=== PATIENT | male | born 1950 | race Caucasian/White ===

== ENCOUNTER → 2016-08-17 | Outpatient (CLI) | payer BC | END | disposition home or self-care (01) | LOC: LABWHC1 16:44 | PROVIDERS: ATTEND Internal Medicine Cardiovascular Disease | DX: I49.9 Cardiac arrhythmia, unspecified (principal); Z51.81 Encounter for therapeutic drug level monitoring | CPT/HCPCS: 36415; 84439; 84443 ==

== ENCOUNTER 2016-11-26 10:47 | Day surgery (SDC) | payer BC ==
[2016-11-19 13:05] VITALS: BMI 23.7
[~2016-11-26 10:47] MED LIST: DEXAMETHASONE SOD PHOSPHATE 10 MG/ML 1 ML VIAL IV ONE; HEPARIN SODIUM,PORCINE 5,000 UNIT/ML 1 ML VIAL SQ ONE; HYDROmorphone 1 MG/ML 1 ML SYRINGE IVP PRN; LIDOCAINE 1% 20 ML VIAL (10MG/ML) FOR IV START INTRADERMA PRN; ONDANSETRON 4 MG/2 ML VIAL IVP ONE; ceFAZolin 2 GM in SODIUM CHLORIDE 0.9% 100 ML IVPB ONE
[2016-11-26] MEDS: LACTATED RINGERS 1,000 ML IV SCH ×2 (11:14→11:31)
[2016-11-26 11:41] LABS: INR 1.3 (<1.2); Prothrombin Time 12.8 sec (9.0-12.0)
[2016-11-26] MEDS ORDERED: MIDAZOLAM 2 MG/2 ML VIAL ONE (12:31)
[2016-11-26] MEDS ORDERED: LIDOCAINE 1% INJ 10MG/ML (20 ML MDV) ONE (12:31)
[2016-11-26] MEDS ORDERED: SUCCINYLCHOLINE CHLORIDE 100 MG/5 ML SYR IV ONE (12:31)
[2016-11-26] MEDS ORDERED: ROCURONIUM BROMIDE 10 MG/ML 10 ML VIAL IV ONE (12:31)
[2016-11-26] MEDS ORDERED: fentaNYL (PF) 50 MCG/ML 2 ML AMP ONE (12:31)
[2016-11-26] MEDS ORDERED: GLYCOPYRROLATE 0.2 MG/ML 2 ML VIAL ONE (12:31)
[2016-11-26] MEDS ORDERED: ePHEDrine 50 MG/ML 1 ML AMP ONE (12:31)
[2016-11-26] MEDS ORDERED: PROPOFOL 10 MG/ML 20 ML VIAL IV ONE (12:31)
[2016-11-26] MEDS ORDERED: NEOSTIGMINE 1 MG/ML 10 ML VIAL ONE (12:31)
[2016-11-26] MEDS ORDERED: BUPIVACAIN-EPI 0.25%-1:200,000 30 ML VIAL SQ ONE (12:58)
[2016-11-26] MEDS ORDERED: LACTATED RINGERS 1,000 ML IV ONE (14:14)
[2016-11-26 14:35] VITALS: TEMP 97
[2016-11-26 15:13] VITALS: RESP 16
[2016-11-26 15:39] VITALS: BP 112/55; PULSE 64
--- NOTE | 2016-11-26 17:09 | P.OP ---
Date of Procedure: 11/26/16 Preoperative Diagnosis: Right inguinal hernia Postoperative Diagnosis: Same Procedure(s) Performed: Robotic-assisted laparoscopic right indirect inguinal hernia repair with mesh Implants: Covidien Progrip mesh Anesthesia: JOSHUA local Surgeon: Rita Bhatia Pathology: none sent Condition: stable Disposition: PACU Indications for Procedure: 66 years old male presents with right inguinal hernia. He had open left inguinal hernia repair in 2016. Informed consent obtained and patient elected to undergo robotic-assisted laparoscopic right inguinal hernia repair with mesh. Operative Findings: Right indirect inguinal hernia Description of Procedure: The patient was brought to the operating room and placed in supine position. General anesthesia with endotracheal intubation was performed as per anesthesia team. Both arms were tucked against the abdominal wall and a shunt was positioned in lithotomy using yellowfin stirrups. A dennison catheter was inserted under sterile aseptic precautions. Chlorhexidine was used to prep the skin followed by application of sterile drapes and Ioban dressing. A timeout was performed to verify correct patient, correct procedure and correct side. Patient was confirmed to receive perioperative IV antibiotics, subcutaneous heparin 5000 units and bilateral SCDs were placed. A 2 mm skin incision was made in the left subcostal area and Veress needle was inserted to establish pneumoperitoneum to a pressure of 15 mmHg. A 1.5 cm supraumbilical incision was made which was deepened through the subcutaneous tissue . Two additional 8 mm skin incisions were made on either side of the midline approximately 8 cm away. A 5 mm 30 laparoscope was used to enter the peritoneum using direct Optiview technique. A 12 mm robotic trocar was inserted in the subumbilical area and 8 mm robotic trocars were inserted on either side of the midline. The patient was placed in Trendelenburg position and the robot was brought in between the legs. The robotic arms including the camera arm were docked on the trocars. The robotic prograsp and monopolar scissors were introduced via arm 1 and 2 respectively. Upon inspection of the peritoneal cavity, right indirect inguinal hernia identified. The hoffman anatomical landmarks including the pubic symphysis, median and medial umbilical ligaments and bilateral epigastric vessels were identified. The left side showed intact hernia repair. No recurrence. Using monopolar scissors a peritoneal flap was created extending medially from the median umbilical ligament and laterally to the direct hernia space. Using gentle traction and countertraction the flap was developed posteriorly. Loose fibrofatty tissue was bluntly dissected. Medially the dissection was carried along the Homar's ligament till pubic tubercle was identified. Care was taken to stay away from the urinary bladder. Dissection was carried out to leave the epigastric vessels against the anterior abdominal wall and laterally beyond the hernia defect. The indirect hernia sac was completely reduced. The iliofemoral vessels were identified. The peritoneal reflection overlying the spermatic cord was also dissected off. Care was taken not to injure any gonadal vessels or spermatic cord. Enough inferior dissection was carried out 2 cm below the hernia defect. No direct hernia noted. Covidien progrip mesh was rolled and introduced through the 8mm camera port. The right mesh was placed in the preperitoneal cavity with green portion overlying the pubic tubercle . The mesh was rolled upwards so that the mesh covered the direct , indirect inguinal hernia and the femoral hernia space without any kinks or folds. The peritoneal flap was then sutured to the cut edge of the peritoneum using continuous 2-0 V lock sutures. The hernia sac was completely reduced and the mesh lay flat without any kinks or folds. The robotic arms were then undocked and 30 degree laparoscope was inserted. All the needles were removed from the abdominal cavity. The 12mm camera trocar site was closed with 2 transfascial sutures of 0 Vicryl. The sponge, instrument and needle count were correct x2. The skin was closed with interrupted sutures of 4-0 Monocryl. Dermabond skin glue was applied followed by Telfa and Tegaderm dressing. Dennison catheter was removed and scrotum was palpated to confirm the position of the testicles. The patient tolerated the procedure well and was taken to post anesthesia care unit in stable condition
== END 2016-11-26 16:10 | disposition home or self-care (01) ==
LOC: OR 10:47
PROVIDERS: ATTEND Surgery
DX: K40.90 Unilateral inguinal hernia, without obstruction or gangrene, not specified as recurrent (principal); I25.2 Old myocardial infarction; I25.10 Atherosclerotic heart disease of native coronary artery without angina pectoris; I10 Essential (primary) hypertension; I48.91 Unspecified atrial fibrillation; Z79.01 Long term (current) use of anticoagulants; E78.5 Hyperlipidemia, unspecified; Z79.82 Long term (current) use of aspirin; Z79.899 Other long term (current) drug therapy; Z79.51 Long term (current) use of inhaled steroids
CPT/HCPCS: 49650; S2900; 85610

== ENCOUNTER 2017-01-01 08:00 | Inpatient (IN) | payer BC, MEDICARE ==
--- NOTE | 2017-01-01 08:51 | ED ---
GI Bleed HPI - General Chief complaint: GI Bleed Stated complaint: Diarrhea Time Seen by Provider: 01/01/17 08:30 Source: patient, RN notes reviewed Mode of arrival: ambulatory Limitations: no limitations - History of Present Illness Initial comments: This is a 66-year-old male with a history of diverticulosis a history of a recent right inguinal hernia repair and a history of hemorrhoids who states he had the onset this morning of abdominal gurgling and diarrhea. He had frequent episodes diarrhea when he got up in the morning he discovered dark blood in the toilet. He complains some lightheadedness dizziness and some shortness of breath with this. No chest pain. He has no history of GI bleeding in the past a history of any abdominal surgery. He did state he had a colonoscopy was did reveal diverticulosis. He has lower suprapubic discomfort at this time. It is mild. Per family he does appear to be somewhat more pale than usualn complaint: gross hematochezia - Related Data Home Medications Medication Instructions Recorded Confirmed Aspirin 81 mg PO DAILY 06/11/15 01/01/17 Montelukast [Singulair] 10 mg PO HS 08/25/15 01/01/17 Warfarin Sodium [Coumadin] 10 mg PO TUTHSA 08/25/15 01/01/17 Multivitamin [Men's Multi-Vitamin] 1 tab PO DAILY 09/27/15 01/01/17 Crenshaw-3 Fatty Acids/Fish Oil [Fish 2 cap PO DAILY 09/27/15 01/01/17 Oil 1,000 mg Softgel] Warfarin Sodium [Coumadin] 8 mg PO SUMOWEFR 10/04/15 01/01/17 Atenolol [Tenormin] 12.5 mg PO HS 11/19/16 01/01/17 Atorvastatin [Lipitor] 20 mg PO HS 11/19/16 01/01/17 Tamsulosin [Flomax] 0.8 mg PO DAILY 11/19/16 01/01/17 Penicillin V Potassium [Pen Vee K] 500 mg PO QID 01/01/17 01/01/17 Previous Rx's Medication Instructions Recorded Amiodarone [Cordarone] 100 mg PO DAILY #30 tab 10/04/15 Docusate [Colace] 100 mg PO BID #30 capsule 11/26/16 Allergies Allergy/AdvReac Type Severity Reaction Status Date / Time No Known Allergies Allergy Verified 01/01/17 08:23 Review of Systems ROS Statement: Those systems with pertinent positive or pertinent negative responses have been documented in the HPI. ROS Other: All systems not noted in ROS Statement are negative. Past Medical History Past Medical History: Atrial Fibrillation, Atrial Flutter, Eye Disorder, Hyperlipidemia, Myocardial Infarction ([place]), Mitral Valve Prolapse (MVP), Prostate Disorder Additional Past Medical History / Comment(s): FOR CARDIAC HISTORY SEE DR CAMARILLO'S H&P. 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 Last Myocardial Infarction Date:: History of Any Multi-Drug Resistant Organisms: None Reported Past Surgical History: Cardiac Ablation, Heart Catheterization, Hernia Repair Additional Past Surgical History / Comment(s): mitral valve REPAIR, left CATARACT SX-THEN REMOVAL OF LT EYE LENS Past Anesthesia/Blood Transfusion Reactions: No Reported Reaction Past Psychological History: No Psychological Hx Reported Smoking Status: Never smoker Past Alcohol Use History: None Reported Past Drug Use History: None Reported - Past Family History Father Family Medical History: CVA/TIA, Myocardial Infarction ([place]) Additional Family Medical History / Comment(s): from heart attack Mother History Unknown: Yes Family Medical History: No Reported History Brother(s) History Unknown: Yes Family Medical History: No Reported History Sister(s) History Unknown: Yes Family Medical History: No Reported History Daughter(s) Family Medical History: No Reported History Son(s) Family Medical History: No Reported History General Exam - General Exam Comments Initial Comments: This is a well-developed well-nourished awake alert oriented 3 male Limitations: no limitations General appearance: alert, in no apparent distress Head exam: Present: atraumatic, normocephalic, normal inspection Eye exam: Present: normal appearance, PERRL, EOMI. Absent: scleral icterus, conjunctival injection, periorbital swelling ENT exam: Present: normal exam, mucous membranes moist Neck exam: Present: normal inspection. Absent: tenderness, meningismus, lymphadenopathy Respiratory exam: Present: normal lung sounds bilaterally. Absent: respiratory distress, wheezes, rales, rhonchi, stridor Cardiovascular Exam: Present: regular rate, normal rhythm, normal heart sounds. Absent: systolic murmur, diastolic murmur, rubs, gallop, clicks GI/Abdominal exam: Present: soft, tenderness, normal bowel sounds. Absent: distended, guarding, rebound, rigid Rectal exam: Present: heme (+) stool (Burning color stool that are prominent hemorrhoids are nontender and without evidence of bleeding at this time. No rectal masses.) exam: Present: normal inspection Extremities exam: Present: normal inspection, full ROM, normal capillary refill. Absent: tenderness, pedal edema, joint swelling, calf tenderness Back exam: Present: normal inspection Neurological exam: Present: alert, oriented X3, CN II-XII intact Psychiatric exam: Present: normal affect, normal mood Skin exam: Present: warm, dry, intact, pallor. Absent: rash Course Vital Signs 01/01/17 01/01/17 01/01/17 08:08 09:10 10:00 Temperature 97.5 F L Pulse Rate 79 65 63 Respiratory 16 20 18 Rate Blood Pressure 91/52 87/54 99/54 O2 Sat by Pulse 98 99 98 Oximetry 01/01/17 01/01/17 11:00 12:00 Temperature Pulse Rate 62 64 Respiratory 18 18 Rate Blood Pressure 86/52 86/58 O2 Sat by Pulse 98 99 Oximetry - Reevaluation(s) Reevaluation #1: 01/01/17 12:51 [address] Hoff and Dr. Bennett Yusuf both came to the emergency department to see the patient. The patient will be admitted to the intensive care unit. I did discuss case with the patient and his family. Medical Decision Making - Lab Data Result diagrams: 01/01/17 08:40 01/01/17 08:40 Lab Results 01/01/17 01/01/17 01/01/17 Range/Units 08:40 08:40 08:40 WBC 8.0 (3.8-10.6) k/uL RBC 3.66 L (4.30-5.90) m/uL Hgb 11.9 L (13.0-17.5) gm/dL Hct 36.4 L (39.0-53.0) % MCV 99.3 (80.0-100.0) fL MCH 32.6 (25.0-35.0) pg MCHC 32.8 (31.0-37.0) g/dL RDW 14.6 (11.5-15.5) % Plt Count 188 (150-450) k/uL Neutrophils % 85 % Lymphocytes % 9 % Monocytes % 4 % Eosinophils % 1 % Basophils % 0 % Neutrophils # 6.8 (1.3-7.7) k/uL Lymphocytes # 0.7 L (1.0-4.8) k/uL Monocytes # 0.3 (0-1.0) k/uL Eosinophils # 0.1 (0-0.7) k/uL Basophils # 0.0 (0-0.2) k/uL PT (9.0-12.0) sec INR (<1.2) APTT (22.0-30.0) sec Sodium 139 (137-145) mmol/L Potassium 5.0 (3.5-5.1) mmol/L Chloride 110 H (98-107) mmol/L Carbon Dioxide 24 (22-30) mmol/L Anion Gap 5 mmol/L BUN 25 H (9-20) mg/dL Creatinine 1.19 (0.66-1.25) mg/dL Est GFR (MDRD) Af Amer >60 (>60 ml/min/1.73 sqM) Est GFR (MDRD) Non-Af >60 (>60 ml/min/1.73 sqM) Glucose 111 H (74-99) mg/dL Calcium 8.2 L (8.4-10.2) mg/dL Total Bilirubin 1.6 H (0.2-1.3) mg/dL AST 35 (17-59) U/L ALT 40 (21-72) U/L Alkaline Phosphatase 71 (38-126) U/L Total Creatine Kinase 336 H (55-170) U/L CK-MB (CK-2) 4.6 H* (0.0-2.4) ng/mL CK-MB (CK-2) Rel Index 1.4 Troponin I <0.012 (0.000-0.034) ng/mL Total Protein 5.7 L (6.3-8.2) g/dL Albumin 3.2 L (3.5-5.0) g/dL Stool Occult Blood (Negative) Blood Type Blood Type Confirm Blood Type Recheck Antibody Screen Spec Expiration Date 01/01/17 01/01/17 01/01/17 Range/Units 08:40 08:40 08:40 WBC (3.8-10.6) k/uL RBC (4.30-5.90) m/uL Hgb (13.0-17.5) gm/dL Hct (39.0-53.0) % MCV (80.0-100.0) fL MCH (25.0-35.0) pg MCHC (31.0-37.0) g/dL RDW (11.5-15.5) % Plt Count (150-450) k/uL Neutrophils % % Lymphocytes % % Monocytes % % Eosinophils % % Basophils % % Neutrophils # (1.3-7.7) k/uL Lymphocytes # (1.0-4.8) k/uL Monocytes # (0-1.0) k/uL Eosinophils # (0-0.7) k/uL Basophils # (0-0.2) k/uL PT 41.5 H (9.0-12.0) sec INR 4.2 H (<1.2) APTT 32.8 H (22.0-30.0) sec Sodium (137-145) mmol/L Potassium (3.5-5.1) mmol/L Chloride (98-107) mmol/L Carbon Dioxide (22-30) mmol/L Anion Gap mmol/L BUN (9-20) mg/dL Creatinine (0.66-1.25) mg/dL Est GFR (MDRD) Af Amer (>60 ml/min/1.73 sqM) Est GFR (MDRD) Non-Af (>60 ml/min/1.73 sqM) Glucose (74-99) mg/dL Calcium (8.4-10.2) mg/dL Total Bilirubin (0.2-1.3) mg/dL AST (17-59) U/L ALT (21-72) U/L Alkaline Phosphatase (38-126) U/L Total Creatine Kinase (55-170) U/L CK-MB (CK-2) (0.0-2.4) ng/mL CK-MB (CK-2) Rel Index Troponin I (0.000-0.034) ng/mL Total Protein (6.3-8.2) g/dL Albumin (3.5-5.0) g/dL Stool Occult Blood Positive (Negative) Blood Type B Positive Blood Type Confirm Blood Type Recheck CABO Indicated Antibody Screen NEGATIVE Spec Expiration Date 01/04/2017 - 233901/01/17 Range/Units 10:31 WBC (3.8-10.6) k/uL RBC (4.30-5.90) m/uL Hgb (13.0-17.5) gm/dL Hct (39.0-53.0) % MCV (80.0-100.0) fL MCH (25.0-35.0) pg MCHC (31.0-37.0) g/dL RDW (11.5-15.5) % Plt Count (150-450) k/uL Neutrophils % % Lymphocytes % % Monocytes % % Eosinophils % % Basophils % % Neutrophils # (1.3-7.7) k/uL Lymphocytes # (1.0-4.8) k/uL Monocytes # (0-1.0) k/uL Eosinophils # (0-0.7) k/uL Basophils # (0-0.2) k/uL PT (9.0-12.0) sec INR (<1.2) APTT (22.0-30.0) sec Sodium (137-145) mmol/L Potassium (3.5-5.1) mmol/L Chloride (98-107) mmol/L Carbon Dioxide (22-30) mmol/L Anion Gap mmol/L BUN (9-20) mg/dL Creatinine (0.66-1.25) mg/dL Est GFR (MDRD) Af Amer (>60 ml/min/1.73 sqM) Est GFR (MDRD) Non-Af (>60 ml/min/1.73 sqM) Glucose (74-99) mg/dL Calcium (8.4-10.2) mg/dL Total Bilirubin (0.2-1.3) mg/dL AST (17-59) U/L ALT (21-72) U/L Alkaline Phosphatase (38-126) U/L Total Creatine Kinase (55-170) U/L CK-MB (CK-2) (0.0-2.4) ng/mL CK-MB (CK-2) Rel Index Troponin I (0.000-0.034) ng/mL Total Protein (6.3-8.2) g/dL Albumin (3.5-5.0) g/dL Stool Occult Blood (Negative) Blood Type Blood Type Confirm B Positive Blood Type Recheck Antibody Screen Spec Expiration Date Critical Care Time Critical Care Time: Yes Critical Care Time: 37 minutes of critical care time which includes initial history physical labs x- rays reevaluation patient response to therapy. Discussion with the admitting physician discussed with the hand zipper trimmer and the surgeon. Disposition Clinical Impression: Hematochezia, GI bleed, Hypotension, Anemia Disposition: ADMITTED IP TO THIS [facility] Condition: Serious
[2017-01-01 09:04] LABS: Basophils % (A) 0 %; CH 33.7; CHCM 34.1; Eosinophils # (A) 0.1 k/uL (0-0.7); Eosinophils % (A) 1 %; HCT 36.4 % (39.0-53.0); HDW 2.54; HGB 11.9 gm/dL (13.0-17.5); Luc # (Auto) 0.08; Luc % (Auto) 1; Lymphocytes # (A) 0.7 k/uL (1.0-4.8); Lymphocytes % (A) 9 %; MCH 32.6 pg (25.0-35.0); MCHC 32.8 g/dL (31.0-37.0); MCV 99.3 fL (80.0-100.0); Mean Platelet Volume 7.6; Monocytes # (A) 0.3 k/uL (0-1.0); Monocytes % (A) 4 %; Neutrophils # (A) 6.8 k/uL (1.3-7.7); Neutrophils % (A) 85 %; RBC 3.66 m/uL (4.30-5.90); RDW 14.6 % (11.5-15.5); WBC (Perox) 8.17
[2017-01-01 09:15] LABS: ALT 40 U/L (21-72); AST 35 U/L (17-59); Alkaline Phosphatase 71 U/L (38-126); Anion Gap 5 mmol/L; Blood Urea Nitrogen 25 mg/dL (9-20); Calcium 8.2 mg/dL (8.4-10.2); Carbon Dioxide 24 mmol/L (22-30); Chloride 110 mmol/L (98-107); Glucose 111 mg/dL (74-99); Non-African American GFR(MDRD) >60 (>60 ml/min/1.73 sqM); Sodium 139 mmol/L (137-145); Total Bilirubin 1.6 mg/dL (0.2-1.3); Total Protein 5.7 g/dL (6.3-8.2)
[2017-01-01 09:22] LABS: INR 4.2 (<1.2); Partial Thromboplastin Time 32.8 sec (22.0-30.0); Prothrombin Time 41.5 sec (9.0-12.0)
[2017-01-01 09:43] LABS: Creatine Kinase 336 U/L (55-170)
[2017-01-01 09:57] LABS: Troponin I <0.012 ng/mL (0.000-0.034)
[2017-01-01 10:08] LABS: Creatine Kinase MB 4.6 ng/mL (0.0-2.4)
[2017-01-01] MEDS ORDERED: RX INFO: IV CONTRAST WAS GIVEN 1 EACH MISC MISCELLANE PRN (11:04)
[2017-01-01] MEDS ORDERED: SODIUM CHLORIDE 0.9% 1,000 ML IV STA (11:32)
--- NOTE | 2017-01-01 12:03 | CT ---
EXAMINATION TYPE: CT abdomen pelvis w con DATE OF EXAM: 01/01/2017 COMPARISON: NONE HISTORY: Diarrhea CT DLP: 1271 mGycm Automated exposure control for dose reduction was used. TECHNIQUE: Helical acquisition of images was performed from the lung bases through the pelvis. CONTRAST: Performed without Oral Contrast and with IV Contrast, patient injected with 100 ml mL of Omnipaque 30 0. FINDINGS: LUNG BASES: Minimal subsegmental bibasilar atelectasis is noted. LIVER/GB: Geographic hypoattenuation is seen near the fissure for the ligamentum teres and most commo nly relates to hepatic steatosis although punctate arterial enhancing region is seen just superior to this on series 3 image 11. The represent a true 6 mm hepatic lesion versus arterial portal shunt. Punctate calculus is seen within the gallbladder fundus dependently. Additionally rounded 5 mm calcul us is seen within the gallbladder neck just proximal to the cystic duct. No current, bile duct dilati on is seen. No right upper quadrant fat stranding is present or pericholecystic fluid. PANCREAS: No significant abnormality is seen. SPLEEN: No significant abnormality is seen. ADRENALS: No significant abnormality is seen. KIDNEYS: Right kidney has a lobulated contour, likely from prior injury. Left kidney is not present a nd may be congenitally or surgically absent as no surgical clips are seen within the retroperitoneal space. Pancreatic tail and adrenal gland extend into the renal fossa. FREE AIR: No free air is visualized. RETROPERITONEAL ADENOPATHY: None visualized REPRODUCTIVE ORGANS: There is heterogeneity of the prostate gland with dystrophic calcification. URINARY BLADDER: No significant abnormality is seen. PELVIC ADENOPATHY: None visualized. OSSEOUS STRUCTURES: Mild degenerative changes of the thoracolumbar and lumbosacral spine are noted. BOWEL: Fluid fluid level is seen within the rectum. Rectum is mildly enlarged measuring 6.9 cm. Find ings are compatible with the patient's history of diarrhea. Numerous sigmoid diverticula are present without pericolonic fat stranding. Probable small epiploic appendage or omental infarct is seen on se lois 3 image 68 (midline measuring 1.0 cm. Fluid collection is seen within the right inguinal canal a nd left inguinal canals fat filled. Small bowel is nondilated. Descending duodenal diverticulum is no connie. IMPRESSION: 1. NO EVIDENCE OF BOWEL OBSTRUCTION. MILDLY ENLARGED RECTUM CONTAINING AIR-FLUID LEVEL COMPATIBLE WIT H THE PATIENT'S HISTORY OF DIARRHEA. SIGMOID DIVERTICULA ARE SEEN WITHOUT DIVERTICULITIS. 2. CHOLELITHIASIS AND 5 MM CALCULUS APPROXIMATING THE ORIGIN OF THE CYSTIC DUCT WITHOUT CURRENT EVIDE NCE OF COMMON BILE DUCT DILATION, PERICHOLECYSTIC FLUID OR RIGHT UPPER QUADRANT FAT STRANDING. 3. 6 MM ARTERIALLY ENHANCING HEPATIC LESION WHICH MAY RELATE TO ARTERIAL PORTAL SHUNT OR TRUE HEPATIC LESION. FURTHER CHARACTERIZATION A NONEMERGENT BASIS WITH DYNAMIC ENHANCED CT ABDOMEN OR MR IS RECOM MENDED. 4. EPIPLOIC APPENDAGE OR OMENTAL INFARCT, LEFT PARA MIDLINE WITHIN THE PELVIS. 5. FLUID COLLECTION WITHIN THE RIGHT INGUINAL CANAL WITH NO ASSOCIATED INFLAMMATORY CHANGE.
[2017-01-01] MEDS ORDERED: NALOXONE 0.4 MG/ML 1 ML VIAL IV PRN (12:39)
--- NOTE | 2017-01-01 13:02 | P.CNPUL ---
History of Present Illness Consult date: 01/01/17 Requesting physician: Keenan Sommer Reason for consult: other (Critical care management) Chief complaint: Bright red bowel movements History of present illness: This is a very pleasant 66-year-old gentleman who follows with Dr. Chan as his primary care physician. He has a history of coronary artery disease with previous myocardial infarction, atrial fibrillation/flutter status post cardioversion and ablation he spent anticoagulated with warfarin since June 2015, hyperlipidemia, mitral valve repair. He did have a recent laparoscopic abdominal hernia repair He is a lifelong nonsmoker. He presented to the emergency room early this morning after having multiple episodes of bright red rectal bleeding which started approximately 1:00 this morning. He does have a prior history of diverticular disease on previous colonoscopy. He has not had any issues with supra therapeutic INR is in the past. He does take Aleve 1 tablet daily and 81 mg aspirin. His hemoglobin is 11.9. INR 4.2. Stool for occult blood is positive. He has been seen and evaluated by surgical services. The patient also was found to be hypotensive with systolic blood pressure in the 80s. He is currently seen in 1 L of normal saline fluid resuscitation. A computed tomography scan of the abdomen and pelvis did reveal sigmoid diverticula without acute diverticulitis. 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 He'll be transferred to the intensive care unit will be following him for the same. Review of Systems 14 point review of system was conducted. All negative other than as mentioned in the HPI. Past Medical History Past Medical History: Atrial Fibrillation, Atrial Flutter, Eye Disorder, Hyperlipidemia, Myocardial Infarction ([place]), Mitral Valve Prolapse (MVP), Prostate Disorder Additional Past Medical History / Comment(s): FOR CARDIAC HISTORY SEE DR CAMARILLO'S H&P. 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 Last Myocardial Infarction Date:: History of Any Multi-Drug Resistant Organisms: None Reported Past Surgical History: Cardiac Ablation, Heart Catheterization, Hernia Repair Additional Past Surgical History / Comment(s): mitral valve REPAIR, left CATARACT SX-THEN REMOVAL OF LT EYE LENS Past Anesthesia/Blood Transfusion Reactions: No Reported Reaction Past Psychological History: No Psychological Hx Reported Smoking Status: Never smoker Past Alcohol Use History: None Reported Past Drug Use History: None Reported - Past Family History Father Family Medical History: CVA/TIA, Myocardial Infarction ([place]) Additional Family Medical History / Comment(s): from heart attack Mother History Unknown: Yes Family Medical History: No Reported History Brother(s) History Unknown: Yes Family Medical History: No Reported History Sister(s) History Unknown: Yes Family Medical History: No Reported History Daughter(s) Family Medical History: No Reported History Son(s) Family Medical History: No Reported History Medications and Allergies Home Medications Medication Instructions Recorded Confirmed Type Aspirin 81 mg PO DAILY 06/11/15 01/01/17 History Montelukast [Singulair] 10 mg PO HS 08/25/15 01/01/17 History Warfarin Sodium [Coumadin] 10 mg PO TUTHSA 08/25/15 01/01/17 History Multivitamin [Men's Multi-Vitamin] 1 tab PO DAILY 09/27/15 01/01/17 History [place]ri[place]ine-3 Fatty Acids/Fish Oil [Fish 2 cap PO DAILY 09/27/15 01/01/17 History Oil 1,000 mg Softgel] Warfarin Sodium [Coumadin] 8 mg PO SUMOWEFR 10/04/15 01/01/17 History Atenolol [Tenormin] 12.5 mg PO HS 11/19/16 01/01/17 History Atorvastatin [Lipitor] 20 mg PO HS 11/19/16 01/01/17 History Tamsulosin [Flomax] 0.8 mg PO DAILY 11/19/16 01/01/17 History Penicillin V Potassium [Pen Vee K] 500 mg PO QID 01/01/17 01/01/17 History Allergies Allergy/AdvReac Type Severity Reaction Status Date / Time No Known Allergies Allergy Verified 01/01/17 08:23 Physical Exam Vitals: Vital Signs Temp Pulse Resp BP Pulse Ox 01/01/17 12:00 64 18 86/58 99 01/01/17 11:00 62 18 86/52 98 01/01/17 10:00 63 18 99/54 98 01/01/17 09:10 65 20 87/54 99 01/01/17 08:08 97.5 F L 79 16 91/52 98 Intake and Output 12/31/16 01/01/17 01/01/17 22:59 06:59 14:59 Other: Weight 78.018 kg Patient Weight 01/02/17 06:59 Weight 78.018 kg GENERAL EXAM: Alert, active, comfortable in no apparent distress. HEAD: Normocephalic. EYES: Normal reaction of pupils, equal size. NOSE: Clear with pink turbinates. THROAT: No erythema or exudates. NECK: No masses, no JVD. CHEST: No chest wall deformity. LUNGS: Equal air entry with no crackles, wheeze, rhonchi or dullness. CVS: S1 and S2 normal with no audible mumurs, regular rhythm. ABDOMEN: No hepatosplenomegaly, normal bowel sounds, no guarding or rigidity. SPINE: No scoliosis or deformity SKIN: No rashes CENTRAL NERVOUS SYSTEM: No focal deficits, tone is normal in all 4 extremities. Extremities: There is no peripheral edema. No clubbing, no cyanosis. Peripheral pulses are intact. Results - Laboratory Findings CBC and BMP: 01/01/17 08:40 01/01/17 08:40 PT/INR, D-dimer PT 41.5 sec (9.0-12.0) H 01/01/17 08:40 INR 4.2 (<1.2) H 01/01/17 08:40 Abnormal lab findings: Abnormal Labs 01/01/17 01/01/17 01/01/17 08:40 08:40 08:40 RBC 3.66 L Hgb 11.9 L Hct 36.4 L Lymphocytes # 0.7 L PT INR APTT Chloride 110 H BUN 25 H Glucose 111 H Calcium 8.2 L Total Bilirubin 1.6 H Total Creatine Kinase 336 H CK-MB (CK-2) 4.6 H* Total Protein 5.7 L Albumin 3.2 L 01/01/17 08:40 RBC Hgb Hct Lymphocytes # PT 41.5 H INR 4.2 H APTT 32.8 H Chloride BUN Glucose Calcium Total Bilirubin Total Creatine Kinase CK-MB (CK-2) Total Protein Albumin Assessment and Plan Plan: Impression: #1 Acute gastrointestinal bleeding suspect secondary to sigmoid diverticula. #2 Hypotension secondary to above requiring fluid resuscitation. No pressors currently. #3 Acute mild anemia secondary to above, continue to monitor hemoglobins every 4 hours. #4 Atrial fibrillation/flutter, anticoagulated with warfarin, supratherapeutic at 4.2. #5 Generalized myalgia with joint pain maintained on Aleve 1 tablet daily. #6 History of mitral valve repair. #7 History of myocardial infarction. #8 Hyperlipidemia. Plan: The patient was seen and evaluated by Dr. Hoff. We will transfer the patient to the intensive care unit for closer monitoring. We will follow-up hemoglobins every 4 hours. He'll receive a second liter of fluid resuscitation. We will reverse the coagulopathy if necessary. Daily PT/INR monitoring. Discontinue nonsteroidal anti-inflammatories. Continue to monitor his blood pressure. No pressor support required at this time. He is seen and evaluated by surgical services. No plans for intervention currently. We'll continue to monitor. Time with Patient: Greater than 30
--- NOTE | 2017-01-01 13:03 | P.GSCN ---
History of Present Illness Consult date: 01/01/17 Reason for Consult: Blood per rectum History of present illness: Patient is a 66-year-old gentleman who states that earlier today he had a bowel movement and noted bright red blood in the toilet. He does have a history of diverticular disease in the past. In the remote past he has had colon polyps removed. He has had 2 colonoscopies in the past he states his last was approximately 4 years ago. He states that he has no abdominal pain. It has had no further bleeding since 8:00 this morning. Following the bowel movement he was lightheaded. He has a known history of mitral valve surgery and has had an INR performed which was elevated. Past surgical history: 1. Robotic right inguinal hernia repair 2. Mitral valve repair 1997 3. Left inguinal hernia repair 4. Eye surgery Past medical history: 1. Mitral valve repair 2. Hernia repair 3. History of OR in the past Review of systems: HEENT: legally blind in the left eye Lungs: Negative Heart: Mitral valve repair Abdomen: As noted : Negative Review of Systems - Constitutional Reports as per HPI - EENT Eyes: bilateral as per HPI - Cardiovascular Cardiovascular Comment(s): Mitral valve repair - Respiratory Reports as per HPI - Gastrointestinal Gastrointestinal Comment(s): Red blood per rectum Reports as per HPI - Genitourinary Reports as per HPI - Psychiatric Reports as per HPI - Endocrine Reports as per HPI - Hematologic/Lymphatic Reports as per HPI Hematologic/Lymphatic Comment(s): Patient on Coumadin Past Medical History Past Medical History: Atrial Fibrillation, Atrial Flutter, Eye Disorder, Hyperlipidemia, Myocardial Infarction ([place]), Mitral Valve Prolapse (MVP), Prostate Disorder Additional Past Medical History / Comment(s): FOR CARDIAC HISTORY SEE DR CAMARILLO'S H&P. 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 Last Myocardial Infarction Date:: History of Any Multi-Drug Resistant Organisms: None Reported Past Surgical History: Cardiac Ablation, Heart Catheterization, Hernia Repair Additional Past Surgical History / Comment(s): mitral valve REPAIR, left CATARACT SX-THEN REMOVAL OF LT EYE LENS Past Anesthesia/Blood Transfusion Reactions: No Reported Reaction Past Psychological History: No Psychological Hx Reported Smoking Status: Never smoker Past Alcohol Use History: None Reported Past Drug Use History: None Reported - Past Family History Father Family Medical History: CVA/TIA, Myocardial Infarction ([place]) Additional Family Medical History / Comment(s): from heart attack Mother History Unknown: Yes Family Medical History: No Reported History Brother(s) History Unknown: Yes Family Medical History: No Reported History Sister(s) History Unknown: Yes Family Medical History: No Reported History Daughter(s) Family Medical History: No Reported History Son(s) Family Medical History: No Reported History Medications and Allergies Home Medications Medication Instructions Recorded Confirmed Type Aspirin 81 mg PO DAILY 06/11/15 01/01/17 History Montelukast [Singulair] 10 mg PO HS 08/25/15 01/01/17 History Warfarin Sodium [Coumadin] 10 mg PO TUTHSA 08/25/15 01/01/17 History Multivitamin [Men's Multi-Vitamin] 1 tab PO DAILY 09/27/15 01/01/17 History [place]-3 Fatty Acids/Fish Oil [Fish 2 cap PO DAILY 09/27/15 01/01/17 History Oil 1,000 mg Softgel] Warfarin Sodium [Coumadin] 8 mg PO SUMOWEFR 10/04/15 01/01/17 History Atenolol [Tenormin] 12.5 mg PO HS 11/19/16 01/01/17 History Atorvastatin [Lipitor] 20 mg PO HS 11/19/16 01/01/17 History Tamsulosin [Flomax] 0.8 mg PO DAILY 11/19/16 01/01/17 History Penicillin V Potassium [Pen Vee K] 500 mg PO QID 01/01/17 01/01/17 History Allergies Allergy/AdvReac Type Severity Reaction Status Date / Time No Known Allergies Allergy Verified 01/01/17 08:23 Surgical - Exam Vital Signs Temp Pulse Resp BP Pulse Ox 97.5 F L 79 16 91/52 98 01/01/17 08:08 01/01/17 08:08 01/01/17 08:08 01/01/17 08:08 01/01/17 08:08 - General well developed, well nourished, no distress - Eyes normal ocular movement - ENT normal pinna, normal nares, no hearing loss - Neck no bruits, trachea midline, no lymphadectomy, no venous distension - Respiratory normal expansion, normal respiratory effort, clear to auscultation - Cardiovascular Rhythm: regular - Abdomen Rectal exam: Red blood per rectum Abdomen: soft, non tender, bowel sounds Hernia: none - Rectum Red blood per rectum Anterior hemorrhoids Rectum: normal sphincter tone - Psychiatric oriented to time, oriented to person, oriented to place, speech is normal Results - Labs 01/01/17 08:40 01/01/17 08:40 Abnormal Lab Results - Last 24 Hours (Table) 01/01/17 01/01/17 01/01/17 Range/Units 08:40 08:40 08:40 RBC 3.66 L (4.30-5.90) m/uL Hgb 11.9 L (13.0-17.5) gm/dL Hct 36.4 L (39.0-53.0) % Lymphocytes # 0.7 L (1.0-4.8) k/uL PT (9.0-12.0) sec INR (<1.2) APTT (22.0-30.0) sec Chloride 110 H (98-107) mmol/L BUN 25 H (9-20) mg/dL Glucose 111 H (74-99) mg/dL Calcium 8.2 L (8.4-10.2) mg/dL Total Bilirubin 1.6 H (0.2-1.3) mg/dL Total Creatine Kinase 336 H (55-170) U/L CK-MB (CK-2) 4.6 H* (0.0-2.4) ng/mL Total Protein 5.7 L (6.3-8.2) g/dL Albumin 3.2 L (3.5-5.0) g/dL 01/01/17 Range/Units 08:40 RBC (4.30-5.90) m/uL Hgb (13.0-17.5) gm/dL Hct (39.0-53.0) % Lymphocytes # (1.0-4.8) k/uL PT 41.5 H (9.0-12.0) sec INR 4.2 H (<1.2) APTT 32.8 H (22.0-30.0) sec Chloride (98-107) mmol/L BUN (9-20) mg/dL Glucose (74-99) mg/dL Calcium (8.4-10.2) mg/dL Total Bilirubin (0.2-1.3) mg/dL Total Creatine Kinase (55-170) U/L CK-MB (CK-2) (0.0-2.4) ng/mL Total Protein (6.3-8.2) g/dL Albumin (3.5-5.0) g/dL Diabetes panel 01/01/17 Range/Units 08:40 Sodium 139 (137-145) mmol/L Potassium 5.0 (3.5-5.1) mmol/L Chloride 110 H (98-107) mmol/L Carbon Dioxide 24 (22-30) mmol/L BUN 25 H (9-20) mg/dL Creatinine 1.19 (0.66-1.25) mg/dL Glucose 111 H (74-99) mg/dL Calcium 8.2 L (8.4-10.2) mg/dL AST 35 (17-59) U/L ALT 40 (21-72) U/L Alkaline Phosphatase 71 (38-126) U/L Total Protein 5.7 L (6.3-8.2) g/dL Albumin 3.2 L (3.5-5.0) g/dL Calcium panel 01/01/17 Range/Units 08:40 Calcium 8.2 L (8.4-10.2) mg/dL Albumin 3.2 L (3.5-5.0) g/dL Pituitary panel 01/01/17 Range/Units 08:40 Sodium 139 (137-145) mmol/L Potassium 5.0 (3.5-5.1) mmol/L Chloride 110 H (98-107) mmol/L Carbon Dioxide 24 (22-30) mmol/L BUN 25 H (9-20) mg/dL Creatinine 1.19 (0.66-1.25) mg/dL Glucose 111 H (74-99) mg/dL Calcium 8.2 L (8.4-10.2) mg/dL Adrenal panel 01/01/17 Range/Units 08:40 Sodium 139 (137-145) mmol/L Potassium 5.0 (3.5-5.1) mmol/L Chloride 110 H (98-107) mmol/L Carbon Dioxide 24 (22-30) mmol/L BUN 25 H (9-20) mg/dL Creatinine 1.19 (0.66-1.25) mg/dL Glucose 111 H (74-99) mg/dL Calcium 8.2 L (8.4-10.2) mg/dL Total Bilirubin 1.6 H (0.2-1.3) mg/dL AST 35 (17-59) U/L ALT 40 (21-72) U/L Alkaline Phosphatase 71 (38-126) U/L Total Protein 5.7 L (6.3-8.2) g/dL Albumin 3.2 L (3.5-5.0) g/dL Assessment and Plan Plan: Impression/plan: 1. 66-year-old gentleman with a lower GI bleed 2. Prior history of diverticular disease 3. Mitral valve disease elevated INR 4. Prior history of myocardial infarction Plan: 1. GI consultation 2. Admission to intensive care unit and closely monitoring hemoglobin 3. Suspect diverticular bleed which will most likely stop with correction of INR I have spent over 30 minutes in the care of this patient.
--- NOTE | 2017-01-01 13:04 | P.PN ---
Progress Note - Text Please note patient's CK-MB bands are elevated and this will be addressed by medicine.
[2017-01-01 13:20] LABS: Glucose,Whole Blood 85 mg/dL (75-99)
[2017-01-01 13:56] LABS: Basophils % (A) 0 %; CH 31.9; CHCM 33.2; Eosinophils # (A) 0.1 k/uL (0-0.7); Eosinophils % (A) 1 %; HDW 2.55; HGB 10.1 gm/dL (13.0-17.5); Luc # (Auto) 0.13; Luc % (Auto) 2; Lymphocytes # (A) 0.9 k/uL (1.0-4.8); Lymphocytes % (A) 14 %; MCH 32.5 pg (25.0-35.0); MCHC 33.6 g/dL (31.0-37.0); MCV 96.7 fL (80.0-100.0); Monocytes # (A) 0.4 k/uL (0-1.0); Monocytes % (A) 6 %; Neutrophils # (A) 4.9 k/uL (1.3-7.7); Neutrophils % (A) 76 %; RDW 13.8 % (11.5-15.5); WBC 6.4 k/uL (3.8-10.6)
--- NOTE | 2017-01-01 14:04 | P.HPIM ---
History of Present Illness H&P Date: 01/01/17 Chief Complaint: lower GI bleed This is a 66-year-old male one of Dr. Chan with a previous medical history significant for coronary artery disease status post myocardial infarction, atrial flutter/fibrillation status post cardiac ablation with chronic anticoagulation on Coumadin, history of mitral valve disease status post mitral valve repair back in 1999 at the [facility], hyperlipidemia, ALLERGIC rhinitis, diverticulosis, patient was in his usual state of health about a 1:00 in the morning today when he woke up complaining of increased abdominal cramps associate with nausea he ended up going to the bathroom and he had significant bright red blood per rectum he thought that he is having diarrhea at that time. He continued to have diarrhea up to 8:00 in the morning he went and had a shower and he felt quite dizzy lightheaded he drove himself to the hospital while he was walking in the parking lot he almost passed out he was seen in the ER he was found to have a low hemoglobin his previous hemoglobin was around 14 and his hemoglobin is found up to be 11 he had dropped to use 3-1/2 g from the last one, patient did have a recent laparoscopic abdominal hernia repair on 11/26/2016 that was done by Dr. Bhatia, patient ended up the admitted to the hospital for lower GI bleed he was admitted to intensive care unit. He was started on IV fluid resuscitation the form of normal saline at 125 mL an hour, CBC every 4 hours for the next 24 hours, we will transfuse for hemoglobin less than 7. Review of Systems Constitutional: Reports weakness, Denies anorexia, Denies chronic headaches, Denies chronic pain, Denies fatigue, Denies malaise, Denies weight gain, Denies weight loss Eyes: left blurred vision, left loss of vision, denies bulging eye, denies decreased vision Ears: deny: decreased hearing Ears, nose, mouth and throat: Denies dysphagia, Denies neck lump, Denies swelling in throat, Denies sore throat Cardiovascular: Denies chest pain, Denies decreased exercise tolerance, Denies dyspnea on exertion, Denies high blood pressure, Denies phlebitis, Denies rapid heart beat, Denies shortness of breath, Denies syncope Respiratory: Denies congestion, Denies cough, Denies cough with sputum, Denies home oxygen, Denies respiratory infections, Denies sleep apnea, Denies snoring, Denies wheezing Gastrointestinal: Reports abdominal pain, Reports bloating, Reports BRBPR, Reports change in bowel habits, Reports diarrhea, Reports hematochezia, Denies constipation, Denies heartburn, Denies hematemesis, Denies melena, Denies nausea , Denies vomiting Genitourinary: Denies dysuria, Denies nocturia, Denies polyuria Musculoskeletal: Denies myalgias Musculoskeletal: absent: ankle pain, ankle stiffness, ankle swelling, elbow pain , elbow stiffness, elbow swelling, foot pain, foot stiffness, foot swelling, hand pain, hand stiffness, hand swelling, hip pain, hip stiffness, hip swelling , knee pain, knee stiffness, knee swelling, shoulder pain, shoulder stiffness, shoulder swelling, wrist pain, wrist stiffness, wrist swelling Integumentary: Denies pruritus, Denies rash Neurological: Denies numbness, Denies weakness Psychiatric: Denies anxiety, Denies depression Endocrine: Denies fatigue, Denies weight change Past Medical History Past Medical History: Atrial Fibrillation, Atrial Flutter, Eye Disorder, Hyperlipidemia, Myocardial Infarction (MS), Mitral Valve Prolapse (MVP), Prostate Disorder Additional Past Medical History / Comment(s): Pt currently being treated with ABX for tooth infection, Afib successfully ablated, Aflutter tx with medications , MS 06/2015, mitral valve disease with repair, BPH, 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 Last Myocardial Infarction Date:: History of Any Multi-Drug Resistant Organisms: None Reported Past Surgical History: Cardiac Ablation, Heart Catheterization, Hernia Repair Additional Past Surgical History / Comment(s): 11/26/16 recent L inguinal hernia repair with mesh, L inguinal hernia repair, 2007 colonoscopy, MAUREEN/cardioversion , 2015 cardiac cath-no intervention, [address] [facility], L cataract removed and L lens removed. Past Anesthesia/Blood Transfusion Reactions: No Reported Reaction Smoking Status: Never smoker - Past Family History Father Family Medical History: CVA/TIA, Myocardial Infarction (MS) Additional Family Medical History / Comment(s): Father from a MS at the age of 59yrs. He had 2 CVAs. Mother History Unknown: Yes Family Medical History: No Reported History Additional Family Medical History / Comment(s): Iveth was healthy and lived to be 84 yrs old. Brother(s) History Unknown: Yes Family Medical History: No Reported History Sister(s) History Unknown: Yes Family Medical History: No Reported History Daughter(s) Family Medical History: No Reported History Son(s) Family Medical History: No Reported History Medications and Allergies Home Medications Medication Instructions Recorded Confirmed Type Aspirin 81 mg PO DAILY 06/11/15 01/01/17 History Montelukast [Singulair] 10 mg PO HS 08/25/15 01/01/17 History Warfarin Sodium [Coumadin] 10 mg PO TUTHSA 08/25/15 01/01/17 History Multivitamin [Men's Multi-Vitamin] 1 tab PO DAILY 09/27/15 01/01/17 History [place]-3 Fatty Acids/Fish Oil [Fish 2 cap PO DAILY 09/27/15 01/01/17 History Oil 1,000 mg Softgel] Warfarin Sodium [Coumadin] 8 mg PO SUMOWEFR 10/04/15 01/01/17 History Atenolol [Tenormin] 12.5 mg PO HS 11/19/16 01/01/17 History Atorvastatin [Lipitor] 20 mg PO HS 11/19/16 01/01/17 History Tamsulosin [Flomax] 0.8 mg PO DAILY 11/19/16 01/01/17 History Penicillin V Potassium [Pen Vee K] 500 mg PO QID 01/01/17 01/01/17 History Allergies Allergy/AdvReac Type Severity Reaction Status Date / Time No Known Allergies Allergy Verified 01/01/17 08:23 Physical Exam Vitals: Vital Signs Temp Pulse Pulse Resp BP BP Pulse Ox 01/01/17 13:20 98.3 F 73 16 113/61 97 01/01/17 13:07 98 F 90 18 100/58 100 01/01/17 12:55 125 H 18 100/52 98 01/01/17 12:00 64 18 86/58 99 01/01/17 11:00 62 18 86/52 98 01/01/17 10:00 63 18 99/54 98 01/01/17 09:10 65 20 87/54 99 01/01/17 08:08 97.5 F L 79 16 91/52 98 Intake and Output 12/31/16 01/01/17 01/01/17 22:59 06:59 14:59 Other: Weight 78.018 kg Patient Weight 01/02/17 06:59 Weight 78.018 kg - Constitutional General appearance: mild distress - EENT Eyes: anicteric sclerae, EOMI, PERRLA, no ptosis, no scleral icterus, normal appearance ENT: hearing grossly normal, NA/AT, normal oropharynx, no thrush Ears: bilateral: normal - Neck Neck: no lymphadenopathy, normal ROM, no rigidity, no stridor, no thyromegaly Carotids: bilateral: upstroke normal Thyroid: bilateral: normal size - Respiratory Respiratory: bilateral: diminished, negative: dullness, rales, rhonchi, wheezing , prolonged expiration - Cardiovascular Rhythm: regular Heart sounds: normal: S1, S2 Abnormal Heart Sounds: no systolic murmur, no S3 Gallop, no S4 Gallop, no click - Gastrointestinal General gastrointestinal: normal bowel sounds, soft, no splenomegaly, no umbilical hernia, no ventral hernia - Integumentary Integumentary: normal, normal turgor - Neurologic Neurologic: CNII-XII intact - Musculoskeletal Musculoskeletal: generalized weakness, strength equal bilaterally - Psychiatric Psychiatric: A&O x's 3, appropriate affect, intact judgment & insight Results CBC & Chem 7: 01/01/17 08:40 01/01/17 08:40 Labs: Abnormal Lab Results - Last 24 Hours (Table) 01/01/17 01/01/17 01/01/17 Range/Units 08:40 08:40 08:40 RBC 3.66 L (4.30-5.90) m/uL Hgb 11.9 L (13.0-17.5) gm/dL Hct 36.4 L (39.0-53.0) % Lymphocytes # 0.7 L (1.0-4.8) k/uL PT (9.0-12.0) sec INR (<1.2) APTT (22.0-30.0) sec Chloride 110 H (98-107) mmol/L BUN 25 H (9-20) mg/dL Glucose 111 H (74-99) mg/dL Calcium 8.2 L (8.4-10.2) mg/dL Total Bilirubin 1.6 H (0.2-1.3) mg/dL Total Creatine Kinase 336 H (55-170) U/L CK-MB (CK-2) 4.6 H* (0.0-2.4) ng/mL Total Protein 5.7 L (6.3-8.2) g/dL Albumin 3.2 L (3.5-5.0) g/dL 01/01/17 Range/Units 08:40 RBC (4.30-5.90) m/uL Hgb (13.0-17.5) gm/dL Hct (39.0-53.0) % Lymphocytes # (1.0-4.8) k/uL PT 41.5 H (9.0-12.0) sec INR 4.2 H (<1.2) APTT 32.8 H (22.0-30.0) sec Chloride (98-107) mmol/L BUN (9-20) mg/dL Glucose (74-99) mg/dL Calcium (8.4-10.2) mg/dL Total Bilirubin (0.2-1.3) mg/dL Total Creatine Kinase (55-170) U/L CK-MB (CK-2) (0.0-2.4) ng/mL Total Protein (6.3-8.2) g/dL Albumin (3.5-5.0) g/dL Thrombosis Risk Factor Assmnt - DVT/VTE Prophylaxis DVT/VTE Prophylaxis: Mechanical Prophylaxis ordered - Choose All That Apply Any of the Below Risk Factors Present?: Yes Other Risk Factors: Yes Each Risk Factor Represents 2 Points: Age 61-74 years Other congenital or acquired thrombophilia - If yes, enter type in comment: No Thrombosis Risk Factor Assessment Total Risk Factor Score: 2 Thrombosis Risk Factor Assessment Level: Low Risk Assessment and Plan Plan: Assessment and plan: 1. Lower GI bleed most likely secondary to diverticular bleed. Admit to the intensive care unit, CBC every 6 hours for the next 24 hours, transfuse for hemoglobin less than 7, continue to monitor the patient very closely, continue IV fluid resuscitation the form of normal saline at 125 mL an hour. 2. Acute blood loss anemia due to lower GI bleed. Monitor CBC every 6 hours, transfuse for hemoglobin less than 7. 3. Mitral valve disorder status post mitral valve repair back in 2000. Stable at this point in time. 4. CAD post MS. Stable at this point in time. Discontinue aspirin. 5. History of atrial fibrillation/flutter status post ablation. Hold Coumadin for now. 6. Coagulopathy due to Coumadin use. Hold Coumadin monitor PT and INR. 7. Recent laparoscopic hernia repair with mesh in 11/26/2016. General surgery consultation. 8. ALLERGIC rhinitis. Continue singular 10 mg at bedtime. 9. Hyperlipidemia. Stable at this time. 10. History of hemorrhoids stable at this point in time. 11. History of diverticulosis and colon polyps last colonoscopy about 4 years ago. 12. DVT prophylaxis. Bilateral knee-high JESENIA hose discontinue Coumadin. 13. GI prophylaxis. Protonix 40 mg IV push every 12 hours. 14. Patient is full code. 15. Admit to inpatient. Estimate a length of stay 2 midnights.
[2017-01-01] MEDS ORDERED: SODIUM CHLORIDE 0.9% 1,000 ML IV ONE ×2 (15:38→21:51)
[2017-01-01] MEDS: SODIUM CHLORIDE 0.9% 1,000 ML IV SCH ×2 (15:50→22:34)
[2017-01-01 17:50] LABS: Basophils % (A) 0 %; CH 33.1; CHCM 33.1; Eosinophils # (A) 0.1 k/uL (0-0.7); Eosinophils % (A) 1 %; HCT 28.1 % (39.0-53.0); HDW 2.53; HGB 9.2 gm/dL (13.0-17.5); Luc # (Auto) 0.08; Luc % (Auto) 1; Lymphocytes # (A) 0.7 k/uL (1.0-4.8); Lymphocytes % (A) 8 %; MCHC 32.8 g/dL (31.0-37.0); MCV 100.6 fL (80.0-100.0); Macrocytosis Slight; Mean Platelet Volume 7.8; Monocytes # (A) 0.4 k/uL (0-1.0); Monocytes % (A) 4 %; Neutrophils # (A) 7.8 k/uL (1.3-7.7); Neutrophils % (A) 86 %; RBC 2.79 m/uL (4.30-5.90); RDW 14.1 % (11.5-15.5); WBC 9.1 k/uL (3.8-10.6); WBC (Perox) 9.12
[2017-01-01] MEDS ORDERED: PHYTONADIONE ORAL 5 MG/5 ML ORAL.SYRG PO STA (18:01)
[2017-01-01] MEDS: DOCUSATE 100 MG CAP PO SCH (21:10)
[2017-01-01] MEDS: ATENOLOL 12.5 MG TAB PO SCH (21:10)
[2017-01-01 22:01] LABS: Basophils % (A) 0 %; CH 32.1; CHCM 33.2; Eosinophils % (A) 1 %; HCT 22.2 % (39.0-53.0); HDW 2.69; HGB 7.9 gm/dL (13.0-17.5); Luc # (Auto) 0.11; Luc % (Auto) 1; Lymphocytes # (A) 0.9 k/uL (1.0-4.8); Lymphocytes % (A) 11 %; MCH 34.7 pg (25.0-35.0); MCHC 35.7 g/dL (31.0-37.0); MCV 97.2 fL (80.0-100.0); Mean Platelet Volume 7.7; Monocytes # (A) 0.3 k/uL (0-1.0); Monocytes % (A) 4 %; Neutrophils # (A) 6.5 k/uL (1.3-7.7); Neutrophils % (A) 83 %; RBC 2.28 m/uL (4.30-5.90); RDW 14.1 % (11.5-15.5); WBC 7.9 k/uL (3.8-10.6); WBC (Perox) 8.04
[2017-01-01] MEDS: MONTELUKAST 10 MG TAB PO SCH (23:17)
[2017-01-01] MEDS: PANTOPRAZOLE 40 MG/10 ML VIAL IVP SCH (23:17)
[2017-01-01] MEDS: ATORVASTATIN 20 MG TAB PO SCH (23:17)
[2017-01-02 04:53] LABS: Basophils % (A) 0 %; CH 32.7; CHCM 33.5; Eosinophils % (A) 1 %; HCT 23.8 % (39.0-53.0); HDW 2.74; HGB 7.8 gm/dL (13.0-17.5); Luc # (Auto) 0.11; Luc % (Auto) 1; Lymphocytes # (A) 0.8 k/uL (1.0-4.8); Lymphocytes % (A) 9 %; MCH 32.2 pg (25.0-35.0); MCHC 32.7 g/dL (31.0-37.0); MCV 98.6 fL (80.0-100.0); Macrocytosis Slight; Mean Platelet Volume 7.5; Monocytes # (A) 0.4 k/uL (0-1.0); Monocytes % (A) 5 %; Neutrophils # (A) 6.8 k/uL (1.3-7.7); Neutrophils % (A) 84 %; RBC 2.42 m/uL (4.30-5.90); RDW 15.3 % (11.5-15.5); WBC 8.2 k/uL (3.8-10.6); WBC (Perox) 8.34
[2017-01-02 05:03] LABS: ALT 30 U/L (21-72); AST 18 U/L (17-59); Alkaline Phosphatase 47 U/L (38-126); Anion Gap 4 mmol/L; Blood Urea Nitrogen 19 mg/dL (9-20); Calcium 6.9 mg/dL (8.4-10.2); Carbon Dioxide 20 mmol/L (22-30); Chloride 116 mmol/L (98-107); Glucose 81 mg/dL (74-99); Magnesium 1.8 mg/dL (1.6-2.3); Non-African American GFR(MDRD) >60 (>60 ml/min/1.73 sqM); Sodium 140 mmol/L (137-145); Total Bilirubin 2.2 mg/dL (0.2-1.3); Total Protein 3.9 g/dL (6.3-8.2)
[2017-01-02 05:23] LABS: Prothrombin Time 29.1 sec (9.0-12.0)
[2017-01-02 05:26] LABS: Potassium 4.3 mmol/L (3.5-5.1)
[2017-01-02] MEDS ORDERED: Magnesium Replacement Protocol 1 EACH MISC MISCELLANE PRN (06:26)
[2017-01-02] MEDS: SODIUM CHLORIDE 0.9% 1,000 ML IV SCH ×2 (06:50→08:38)
[2017-01-02] MEDS: MAGNESIUM SULFATE-D5W PMX 1 GM in DEXTROSE/WATER 1 100ML.BAG IVPB SCH ×2 (06:50→08:40)
[2017-01-02] MEDS: PANTOPRAZOLE 40 MG/10 ML VIAL IVP SCH ×2 (08:40→20:06)
[2017-01-02] MEDS: DOCUSATE 100 MG CAP PO SCH (08:40)
[2017-01-02] MEDS: AMIODARONE 100 MG TAB PO SCH (08:40)
[2017-01-02 09:56] LABS: Basophils % (A) 0 %; CH 32.7; CHCM 33.9; Eosinophils % (A) 0 %; HDW 2.94; Luc # (Auto) 0.09; Luc % (Auto) 1; Lymphocytes # (A) 0.9 k/uL (1.0-4.8); Lymphocytes % (A) 11 %; MCH 32.7 pg (25.0-35.0); MCHC 33.7 g/dL (31.0-37.0); Mean Platelet Volume 7.6; Monocytes # (A) 0.4 k/uL (0-1.0); Monocytes % (A) 6 %; Neutrophils # (A) 6.5 k/uL (1.3-7.7); Neutrophils % (A) 82 %; RBC 2.06 m/uL (4.30-5.90); RDW 15.3 % (11.5-15.5); WBC (Perox) 7.51
[2017-01-02 09:59] LABS: HGB 6.7 gm/dL (13.0-17.5)
--- NOTE | 2017-01-02 10:44 | P.CONS ---
History of Present Illness - Reason for Consult Consult date: 01/02/17 GI bleed Requesting physician: Keenan Sommer - History of Present Illness 66-year-old gentleman with a past medical history of diverticulosis, atrial fibrillation with Coumadin monitoring, mitral valve repair presents with painless rectal bleeding associated with lightheadedness that started early yesterday a.m. Past multiple bright red maroon bowel movements with clots. Denies fever chills hematemesis or melena. No history GI bleed. Last colonoscopy to his memory 6 years ago few polyps removed with diverticular disease. EGD in the past but many years ago. Recently underwent robotic right inguinal hernia repair with mesh last month. Patient consumes 2 beers on a daily basis for many years. He also takes one tablet of Aleve daily. Admission hemoglobin 10.1 presently 6.7. MCV 96-100. Platelet 172. INR 4.2 received vitamin K presently 3.0. Patient is actively passing bloody bowel movements with his last bowel movement 30 minutes ago. BUN 25. Creatinine 1.1. CT abdomen and pelvis sigmoid diverticula without diverticulitis. Review of Systems Constitutional: Denies fever, chills, sweats, weight gain, or loss. HEENT: Negative for migraines, blurred vision or loss, earaches, drainage, tinnitus, oral mucosal lesions, dysphagia, or odynophagia. Cardiac: Atrial fibrillation. NV. Hyperlipidemia. Negative for chest pain, arrhythmias, or palpitation. Respiratory: Negative for shortness of breath, hemoptysis, cough, or sputum production. Gastrointestinal: See HPI for pertinent findings. Genitourinary: Negative for hematuria, urgency, frequency, polyuria, dysuria, or penile discharge. Musculoskeletal: Negative for muscle aches, swelling, arthritis, and arthralgias. Neurologic: Negative for stroke or TIA. Endocrine: Negative for thyroid problems. Skin: Negative for rash or itching. 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 Last Myocardial Infarction Date:: History of Any Multi-Drug Resistant Organisms: None Reported Past Surgical History: Cardiac Ablation, Heart Catheterization, Hernia Repair Additional Past Surgical History / Comment(s): 11/26/16 recent L inguinal hernia repair with mesh, L inguinal hernia repair, 2007 colonoscopy, MAUREEN/cardioversion , 2015 cardiac cath-no intervention, 2000 MVR at [facility], L cataract removed and L lens removed. Past Anesthesia/Blood Transfusion Reactions: No Reported Reaction Smoking Status: Never smoker - Past Family History Father Family Medical History: CVA/TIA, Myocardial Infarction (NV) Additional Family Medical History / Comment(s): Father from a NV at the age of 59yrs. He had 2 CVAs. Mother History Unknown: Yes Family Medical History: No Reported History Additional Family Medical History / Comment(s): Iveth was healthy and lived to be 84 yrs old. Brother(s) History Unknown: Yes Family Medical History: No Reported History Sister(s) History Unknown: Yes Family Medical History: No Reported History Daughter(s) Family Medical History: No Reported History Son(s) Family Medical History: No Reported History Medications and Allergies Home Medications Medication Instructions Recorded Confirmed Type Aspirin 81 mg PO DAILY 06/11/15 01/01/17 History Montelukast [Singulair] 10 mg PO HS 08/25/15 01/01/17 History Warfarin Sodium [Coumadin] 10 mg PO TUTHSA 08/25/15 01/01/17 History Multivitamin [Men's Multi-Vitamin] 1 tab PO DAILY 09/27/15 01/01/17 History [place]-3 Fatty Acids/Fish Oil [Fish 2 cap PO DAILY 09/27/15 01/01/17 History Oil 1,000 mg Softgel] Warfarin Sodium [Coumadin] 8 mg PO SUMOWEFR 10/04/15 01/01/17 History Atenolol [Tenormin] 12.5 mg PO HS 11/19/16 01/01/17 History Atorvastatin [Lipitor] 20 mg PO HS 11/19/16 01/01/17 History Tamsulosin [Flomax] 0.8 mg PO DAILY 11/19/16 01/01/17 History Penicillin V Potassium [Pen Vee K] 500 mg PO QID 01/01/17 01/01/17 History Allergies Allergy/AdvReac Type Severity Reaction Status Date / Time No Known Allergies Allergy Verified 01/01/17 08:23 Physical Exam Vitals: Vital Signs Temp Pulse Pulse Resp BP BP Pulse Ox 01/02/17 10:00 98 12 94/60 100 01/02/17 09:00 98 10 L 101/59 98 01/02/17 08:00 98.5 F 92 12 104/66 99 01/02/17 07:00 89 11 L 105/59 100 01/02/17 06:30 115 H 34 H 105/70 100 01/02/17 06:00 89 14 103/60 100 01/02/17 05:30 97 16 105/54 100 01/02/17 05:00 101 H 15 111/63 89 L 01/02/17 04:30 92 18 101/63 99 01/02/17 04:00 98 F 82 14 92/62 100 01/02/17 03:30 77 15 89/55 100 01/02/17 03:00 70 16 100/57 98 01/02/17 02:30 79 16 102/64 100 01/02/17 02:00 87 15 107/69 99 01/02/17 01:30 68 15 105/60 100 01/02/17 01:14 98 F 75 14 102/55 01/02/17 01:00 69 15 91/53 100 01/02/17 00:44 98.1 F 70 15 92/53 100 01/02/17 00:34 98.0 F 69 15 94/60 100 01/02/17 00:30 75 13 100/56 100 01/02/17 00:00 98.1 F 71 16 98/50 100 01/01/17 23:59 75 15 98/50 100 01/01/17 23:30 75 13 102/50 100 01/01/17 23:00 77 11 L 100/52 100 01/01/17 22:30 76 9 L 97/57 99 01/01/17 22:00 74 16 88/52 99 01/01/17 21:30 85 14 81/53 100 01/01/17 21:00 85 15 93/54 99 01/01/17 20:30 83 13 111/57 97 01/01/17 20:00 98.5 F 77 16 93/54 99 01/01/17 19:30 84 15 96/52 99 01/01/17 19:00 83 15 98/51 99 01/01/17 18:30 79 16 96/42 100 01/01/17 18:00 78 18 91/58 100 01/01/17 17:30 70 14 85/51 100 01/01/17 17:00 63 16 91/56 100 01/01/17 16:45 63 14 87/51 100 01/01/17 16:30 62 18 90/56 100 01/01/17 16:15 60 14 86/50 100 01/01/17 16:00 62 14 90/51 100 01/01/17 15:45 61 16 87/56 100 01/01/17 15:30 68 12 86/56 97 01/01/17 15:00 74 16 101/53 98 01/01/17 14:45 75 11 L 91/57 97 01/01/17 14:30 69 12 86/53 98 01/01/17 14:15 67 11 L 86/57 98 01/01/17 14:00 69 10 L 100/64 99 01/01/17 13:45 75 22 109/63 98 01/01/17 13:30 66 13 113/61 100 01/01/17 13:20 98.3 F 73 16 113/61 97 01/01/17 13:07 98 F 90 18 100/58 100 01/01/17 12:55 125 H 18 100/52 98 01/01/17 12:00 64 18 86/58 99 01/01/17 11:00 62 18 86/52 98 Intake and Output 01/01/17 01/02/17 01/02/17 22:59 06:59 14:59 Intake Total 2875 1310 700 Output Total 550 400 200 Balance 2325 910 500 Intake: IV 1375 1000 700 Magnesium Sulfate-D5w Pmx 200 1 gm In Dextrose/Water 1 100ml.bag @ 100 mls/hr IVPB Q1H [facility] Rx#: [id number] Sodium Chloride 0.9% 1, 375 1000 500 000 ml @ 125 mls/hr IV . Q8H [facility] Rx#:[id number] Sodium Chloride 0.9% 1, 1000 000 ml @ 999 mls/hr IV . Q1H1M ONE Rx#:[id number] Intake, IV Titration 1500 Amount Sodium Chloride 0.9% 1, 500 000 ml @ 125 mls/hr IV . Q8H [facility] Rx#:[id number] Sodium Chloride 0.9% 1, 1000 000 ml @ 999 mls/hr IV . Q1H1M ONE Rx#:[id number] Blood Product 310 Rc As-3 Unit 310 [id number] Output: Urine 550 400 0 Stool 200 Other: Voiding Method Urinal Urinal Urinal # Voids 1 0 # Bowel Movements 1 2 1 Weight 79.2 kg General appearance: The patient is alert, oriented, in no acute distress. HET: Head is normocephalic and atraumatic. Pupils are equal and reactive. Oropharynx is clear without lesions. Neck: Supple without lymphadenopathy. Trachea midline. Heart: S1 S2. Regular rate and rhythm. Lungs: No crackles or wheezes are heard. Abdomen: Soft, nontender, nondistended with bowel sounds. No peritoneal signs. No palpable organomegaly or masses. Extremities: Normal skin color and turgor. No cyanosis, rash, ulceration, clubbing, or edema. Radial and pedal pulses are 2/4 bilaterally. Neurological: No focal deficits. Strength and sensation are grossly intact. Rectal: Visible gross amounts of burgundy blood with clots. Internal exam not performed. Results CBC & Chem 7: 01/02/17 09:29 01/02/17 03:57 Labs: Abnormal Lab Results - Last 24 Hours (Table) 01/01/17 01/01/17 01/01/17 Range/Units 08:40 13:36 17:39 RBC 3.10 L 2.79 L (4.30-5.90) m/uL Hgb 10.1 L 9.2 L (13.0-17.5) gm/dL Hct 30.0 L 28.1 L (39.0-53.0) % MCV 100.6 H (80.0-100.0) fL Neutrophils # 7.8 H (1.3-7.7) k/uL Lymphocytes # 0.9 L 0.7 L (1.0-4.8) k/uL PT (9.0-12.0) sec INR (<1.2) Chloride (98-107) mmol/L Carbon Dioxide (22-30) mmol/L Calcium (8.4-10.2) mg/dL Total Bilirubin (0.2-1.3) mg/dL Total Protein (6.3-8.2) g/dL Albumin (3.5-5.0) g/dL Crossmatch See Detail 01/01/17 01/02/17 01/02/17 Range/Units 21:25 03:50 03:57 RBC 2.28 L 2.42 L (4.30-5.90) m/uL Hgb 7.9 L 7.8 L (13.0-17.5) gm/dL Hct 22.2 L 23.8 L (39.0-53.0) % MCV (80.0-100.0) fL Neutrophils # (1.3-7.7) k/uL Lymphocytes # 0.9 L 0.8 L (1.0-4.8) k/uL PT 29.1 H (9.0-12.0) sec INR 3.0 H (<1.2) Chloride (98-107) mmol/L Carbon Dioxide (22-30) mmol/L Calcium (8.4-10.2) mg/dL Total Bilirubin (0.2-1.3) mg/dL Total Protein (6.3-8.2) g/dL Albumin (3.5-5.0) g/dL Crossmatch 01/02/17 01/02/17 Range/Units 03:57 09:29 RBC 2.06 L (4.30-5.90) m/uL Hgb 6.7 L* (13.0-17.5) gm/dL Hct 20.0 L* (39.0-53.0) % MCV (80.0-100.0) fL Neutrophils # (1.3-7.7) k/uL Lymphocytes # 0.9 L (1.0-4.8) k/uL PT (9.0-12.0) sec INR (<1.2) Chloride 116 H (98-107) mmol/L Carbon Dioxide 20 L (22-30) mmol/L Calcium 6.9 L (8.4-10.2) mg/dL Total Bilirubin 2.2 H (0.2-1.3) mg/dL Total Protein 3.9 L (6.3-8.2) g/dL Albumin 2.0 L (3.5-5.0) g/dL Crossmatch CT scan - abdomen: report reviewed (Dr. House) Assessment and Plan (1) GI bleed Narrative/Plan: Acute lower GI bleed with history of diverticulosis atrial fibrillation with mitral valve repair and chronic NSAID usage suspect diverticular bleed however upper pathology cannot be entirely excluded exacerbated by Coumadin coagulopathy. Status: Acute (2) Acute blood loss anemia Status: Acute (3) Warfarin-induced coagulopathy Status: Acute Plan: 1. FFP. CBC monitoring. 2. Blood transfusion. 3. IV Protonix 40 mg twice daily. 4. Nothing by mouth except medications ice chips and popsicles sparingly. 5. We'll proceed with EGD colonoscopy once INR is closer to 1.5 or less. The data sciences director has discussed the risks, benefits and alternative therapies for the above-mentioned procedure and for both sedation/analgesia as well as necessary blood product administration, if indicated, as they pertain to this patient. The patient has indicated understanding and acceptance of the risks and procedures discussed. Thank you for this kind referral and the opportunity to participate in the care of your patient. This consultation was discussed with Dr. House. The impression and plan of care have been directed as dictated.
--- NOTE | 2017-01-02 10:57 | XR ---
EXAMINATION TYPE: XR chest 1V portable DATE OF EXAM: 01/02/2017 COMPARISON: 08/25/2015 HISTORY: Concern for pleural effusion. TECHNIQUE: Single frontal view of the chest is obtained. FINDINGS: There is no focal air space opacity, pleural effusion, or pneumothorax seen. The cardiac silhouette size is within normal limits. The osseous structures are intact. Intact midline sternoto my wires are present as well as mild degenerative changes of the thoracic spine. IMPRESSION: No acute cardiac bony process. No pleural effusion.
--- NOTE | 2017-01-02 12:14 | CDI ---
In responding to this query, please exercise your independent professional judgment. The [facility] Coding Staff and Clinical Documentation Specialists appreciate your assistance in clarifying documentation, maintaining compliance with coding guidelines, accurately documenting patients condition and capturing severity of illness. The fact that a question is asked does not imply that any particular answer is desired or expected. Communication forms are a method of clarifying documentation and are not made part of the Legal Health Record. Thank you in advance for your clarification. Last Revision, March 2015 Derek Jung [address] [place] [address] Documentation Clarification Form Date: 01/02/2017 11:51:00 AM From: Isamar Perales RN, CDS Admit Date: 01/01/2017 12:39:00 PM Patient Name: Donal Mahan Visit Number: [id number] Dr. Keenan Sommer 66 year old patient admitted for Lower GI bleed. Stool positive for occult blood. He has a history of Mitral Valve disease and is had Mitral Valve Repair in 2000. INR is 4.2 and "coagulopathy due to Coumadin" is documented in H&P. "suspect diverticular bleed upper pathology cannot be excluded exacerbation by Coumadin coagulopathy, warfarin induced coagulopathy per GI consult. Patient history/risk factors: Mitral valve repair, Coumadin 8 and 10 mg alternating days at home, Diverticulosis, A-fib/flutter Clinical Indicators: VS: 97.5 79 16 91/52 98 INR 4.2, Stool + occult blood, Treatment: 2 Units Fresh Frozen Plasma, 3 Units PRBC transfusion, GI consult, Surgery consult, EGD/Colonoscopy when INR is closer to 1.5 or less In your professional opinion, can you please clarify? - Hemorrhagic Disorder due to extrinsic circulating anticoagulants - Coagulopathy - Other - Unable to determine Please document in your progress notes and discharge summary in order to capture severity of illness and risk of mortality. Include clinical findings that support your diagnosis. FYI: Press F11 to launch patient chart. Thank you. Coagulopathy due to coumadin use MTDD
--- NOTE | 2017-01-02 12:42 | P.PN ---
Subjective This is a 66-year-old male one of Dr. Chan with a previous medical history significant for coronary artery disease status post myocardial infarction, atrial flutter/fibrillation status post cardiac ablation with chronic anticoagulation on Coumadin, history of mitral valve disease status post mitral valve repair back in 1999 at the [facility], hyperlipidemia, ALLERGIC rhinitis, diverticulosis, patient was in his usual state of health about a 1:00 in the morning today when he woke up complaining of increased abdominal cramps associate with nausea he ended up going to the bathroom and he had significant bright red blood per rectum he thought that he is having diarrhea at that time. He continued to have diarrhea up to 8:00 in the morning he went and had a shower and he felt quite dizzy lightheaded he drove himself to the hospital while he was walking in the parking lot he almost passed out he was seen in the ER he was found to have a low hemoglobin his previous hemoglobin was around 14 and his hemoglobin is found up to be 11 he had dropped to use 3-1/2 g from the last one, patient did have a recent laparoscopic abdominal hernia repair on 11/26/2016 that was done by Dr. Bhatia, patient ended up the admitted to the hospital for lower GI bleed he was admitted to intensive care unit. He was started on IV fluid resuscitation the form of normal saline at 125 mL an hour, CBC every 4 hours for the next 24 hours, we will transfuse for hemoglobin less than 7. 8/30: Patient is now status post transfusion 2 units packed RBCs and fresh frozen plasma. Hemoglobin this morning was 6.7. He continues to have bright red rectal bleeding. GI is on consult with plan for endoscopy on Saturday. INR today is at 3 status post 1 dose of vitamin K. He is followed by Dr. Hoff for intensive care management, general surgeon Dr. Bennett Yusuf, and Dr. House from GI. Objective - Vital Signs Vital signs: Vital Signs Temp 97.6 F 01/02/17 12:22 Pulse 97 01/02/17 12:22 Resp 17 01/02/17 12:22 BP 122/65 01/02/17 12:22 Pulse Ox 100 01/02/17 12:22 Intake & Output 01/01/17 01/02/17 01/02/17 18:59 06:59 18:59 Intake Total 1500 2810 1352 Output Total 950 200 Balance 1500 1860 1152 Weight 78.018 kg 79.2 kg Intake: IV 2375 950 Magnesium Sulfate-D5w Pmx 200 1 gm In Dextrose/Water 1 100ml.bag @ 100 mls/hr IVPB Q1H [facility] Rx#: [id number] Sodium Chloride 0.9% 1, 1375 750 000 ml @ 125 mls/hr IV . Q8H CLAIRCE Rx#:[id number] Sodium Chloride 0.9% 1, 1000 000 ml @ 999 mls/hr IV . Q1H1M ONE Rx#:[id number] Intake, IV Titration 1500 125 Amount Sodium Chloride 0.9% 1, 500 125 000 ml @ 125 mls/hr IV . Q8H [facility] Rx#:[id number] Sodium Chloride 0.9% 1, 1000 000 ml @ 999 mls/hr IV . Q1H1M ONE Rx#:[id number] Blood Product 310 402 Ffp 24 Cp2d Unit 191 [id number] Ffp 24 Cp2d Unit 211 [id number] Rc As-1 Unit 0 [id number] Rc As-3 Unit 310 [id number] Output: Urine 950 0 Stool 200 Other: Voiding Method Urinal Urinal # Voids 1 0 1 # Bowel Movements 1 2 1 - Exam General appearance: mild distress - EENT Eyes: anicteric sclerae, EOMI, PERRLA, no ptosis, no scleral icterus, normal appearance ENT: hearing grossly normal, NA/AT, normal oropharynx, no thrush Ears: bilateral: normal - Neck Neck: no lymphadenopathy, normal ROM, no rigidity, no stridor, no thyromegaly Carotids: bilateral: upstroke normal Thyroid: bilateral: normal size - Respiratory Respiratory: bilateral: diminished, negative: dullness, rales, rhonchi, wheezing , prolonged expiration - Cardiovascular Rhythm: regular Heart sounds: normal: S1, S2 Abnormal Heart Sounds: no systolic murmur, no S3 Gallop, no S4 Gallop, no click - Gastrointestinal General gastrointestinal: normal bowel sounds, soft, no splenomegaly, no umbilical hernia, no ventral hernia - Integumentary Integumentary: normal, normal turgor - Neurologic Neurologic: CNII-XII intact - Musculoskeletal Musculoskeletal: generalized weakness, strength equal bilaterally - Psychiatric Psychiatric: A&O x's 3, appropriate affect, intact judgment & insight - Labs CBC & Chem 7: 01/02/17 09:29 01/02/17 03:57 Labs: Abnormal Lab Results - Last 24 Hours (Table) 01/01/17 01/01/17 01/01/17 Range/Units 08:40 13:36 17:39 RBC 3.10 L 2.79 L (4.30-5.90) m/uL Hgb 10.1 L 9.2 L (13.0-17.5) gm/dL Hct 30.0 L 28.1 L (39.0-53.0) % MCV 100.6 H (80.0-100.0) fL Neutrophils # 7.8 H (1.3-7.7) k/uL Lymphocytes # 0.9 L 0.7 L (1.0-4.8) k/uL PT (9.0-12.0) sec INR (<1.2) Chloride (98-107) mmol/L Carbon Dioxide (22-30) mmol/L Calcium (8.4-10.2) mg/dL Total Bilirubin (0.2-1.3) mg/dL Total Protein (6.3-8.2) g/dL Albumin (3.5-5.0) g/dL Crossmatch See Detail 01/01/17 01/02/17 01/02/17 Range/Units 21:25 03:50 03:57 RBC 2.28 L 2.42 L (4.30-5.90) m/uL Hgb 7.9 L 7.8 L (13.0-17.5) gm/dL Hct 22.2 L 23.8 L (39.0-53.0) % MCV (80.0-100.0) fL Neutrophils # (1.3-7.7) k/uL Lymphocytes # 0.9 L 0.8 L (1.0-4.8) k/uL PT 29.1 H (9.0-12.0) sec INR 3.0 H (<1.2) Chloride (98-107) mmol/L Carbon Dioxide (22-30) mmol/L Calcium (8.4-10.2) mg/dL Total Bilirubin (0.2-1.3) mg/dL Total Protein (6.3-8.2) g/dL Albumin (3.5-5.0) g/dL Crossmatch 01/02/17 01/02/17 Range/Units 03:57 09:29 RBC 2.06 L (4.30-5.90) m/uL Hgb 6.7 L* (13.0-17.5) gm/dL Hct 20.0 L* (39.0-53.0) % MCV (80.0-100.0) fL Neutrophils # (1.3-7.7) k/uL Lymphocytes # 0.9 L (1.0-4.8) k/uL PT (9.0-12.0) sec INR (<1.2) Chloride 116 H (98-107) mmol/L Carbon Dioxide 20 L (22-30) mmol/L Calcium 6.9 L (8.4-10.2) mg/dL Total Bilirubin 2.2 H (0.2-1.3) mg/dL Total Protein 3.9 L (6.3-8.2) g/dL Albumin 2.0 L (3.5-5.0) g/dL Crossmatch Assessment and Plan Plan: 1. Acute lower GI bleed most likely secondary to diverticular bleed exacerbated by coagulopathy from Coumadin. Admit to the intensive care unit, CBC every 6 hours for the next 24 hours, transfuse for hemoglobin less than 7, continue to monitor the patient very closely, continue IV fluid resuscitation the form of normal saline at [address] Hoff on consult for intensive care management. GI on consult for EGD and colonoscopy. 2. Acute blood loss anemia due to lower GI bleed. Monitor CBC every 6 hours, transfuse for hemoglobin less than 7. 3. Mitral valve disorder status post mitral valve repair back in 2000. Stable at this point in time. 4. CAD post PA. Stable at this point in time. Discontinue aspirin. 5. History of atrial fibrillation/flutter status post ablation. Hold Coumadin for now. 6. Coagulopathy due to Coumadin use. Hold Coumadin monitor PT and INR. 7. Recent laparoscopic hernia repair with mesh in 11/26/2016. General surgery consultation. 8. ALLERGIC rhinitis. Continue singular 10 mg at bedtime. 9. Hyperlipidemia. Stable at this time. 10. History of hemorrhoids stable at this point in time. 11. History of diverticulosis and colon polyps last colonoscopy about 4 years ago. 12. DVT prophylaxis. Bilateral knee-high JESENIA hose discontinue Coumadin. 13. GI prophylaxis. Protonix 40 mg IV push every 12 hours. 14. Patient is full code. Discharge plan: Return home Impression and plan of care have been directed as dictated by the signing physician. Alisa Finnegan nurse practitioner acting as scribe for signing physician.
--- NOTE | 2017-01-02 14:32 | P.PN ---
Subjective This is a very pleasant 66-year-old gentleman who follows with Dr. Chan as his primary care physician. He has a history of coronary artery disease with previous myocardial infarction, atrial fibrillation/flutter status post cardioversion and ablation he spent anticoagulated with warfarin since June 2015, hyperlipidemia, mitral valve repair. He did have a recent laparoscopic abdominal hernia repair He is a lifelong nonsmoker. He presented to the emergency room early this morning after having multiple episodes of bright red rectal bleeding which started approximately 1:00 this morning. He does have a prior history of diverticular disease on previous colonoscopy. He has not had any issues with supra therapeutic INR is in the past. He does take Aleve 1 tablet daily and 81 mg aspirin. His hemoglobin is 11.9. INR 4.2. Stool for occult blood is positive. He has been seen and evaluated by surgical services. The patient also was found to be hypotensive with systolic blood pressure in the 80s. He is currently seen in 1 L of normal saline fluid resuscitation. A computed tomography scan of the abdomen and pelvis did reveal sigmoid diverticula without acute diverticulitis. 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 He'll be transferred to the intensive care unit will be following him for the same. On 01/02/2017 the patient is being seen in follow-up. The patient has lost significant amount of blood secondary to episodic GI bleeding. His last GI bleed was earlier this morning where he had large amount of bloody bowel movement, maroon colored with some clots. Morning hemoglobin was 6.7. The patient will be given packed RBC transfusion. A total of 2 units was ordered. He'll be also given 2 units of fresh frozen plasma knowing that her INR was still elevated at 3.0 this morning. No abdominal pain. No nausea. No vomiting. No emesis. No hypotension. He has adequate urine output. No change in mental status. General surgeries on the case. GI is also on the case. The patient will be kept in ICU for further monitoring. Objective - Vital Signs Vital signs: Vital Signs Temp 97.6 F 01/02/17 12:22 Pulse 83 01/02/17 14:00 Resp 14 01/02/17 14:00 BP 127/84 01/02/17 14:00 Pulse Ox 96 01/02/17 14:00 Intake & Output 01/01/17 01/02/17 01/02/17 18:59 06:59 18:59 Intake Total 1500 2810 1602 Output Total 950 450 Balance 1500 1860 1152 Weight 78.018 kg 79.2 kg Intake: IV 2375 1200 Magnesium Sulfate-D5w Pmx 200 1 gm In Dextrose/Water 1 100ml.bag @ 100 mls/hr IVPB Q1H [facility] Rx#: [id number] Sodium Chloride 0.9% 1, 1375 1000 000 ml @ 125 mls/hr IV . Q8H [facility] Rx#:[id number] Sodium Chloride 0.9% 1, 1000 000 ml @ 999 mls/hr IV . Q1H1M ONE Rx#:[id number] Intake, IV Titration 1500 125 Amount Sodium Chloride 0.9% 1, 500 125 000 ml @ 125 mls/hr IV . Q8H [facility] Rx#:[id number] Sodium Chloride 0.9% 1, 1000 000 ml @ 999 mls/hr IV . Q1H1M ONE Rx#:[id number] Blood Product 310 402 Ffp 24 Cp2d Unit 191 [id number] Ffp 24 Cp2d Unit 211 [id number] Rc As-1 Unit 0 [id number] Rc As-3 Unit 310 [id number] Output: Urine 950 250 Stool 200 Other: Voiding Method Urinal Urinal # Voids 1 0 1 # Bowel Movements 1 2 1 - Exam The patient appeared well nourished and normally developed. Vital signs as documented. Head exam is unremarkable. No scleral icterus or corneal arcus noted. Neck is without jugular venous distension, thyromegaly, or carotid bruits. Carotid upstrokes are brisk bilaterally. Lungs are clear to auscultation and percussion. Cardiac exam reveals the PMI to be normally sized and situated. Rhythm is regular. First and second heart sounds normal. No murmurs, rubs or gallops. Abdominal exam reveals normal bowel sounds, no masses , no organomegaly and no aortic enlargement. Extremities are nonedematous and both femoral and pedal pulses are normal. - Labs CBC & Chem 7: 01/02/17 09:29 01/02/17 03:57 Labs: Abnormal Lab Results - Last 24 Hours (Table) 01/01/17 01/01/17 01/01/17 Range/Units 08:40 17:39 21:25 RBC 2.79 L 2.28 L (4.30-5.90) m/uL Hgb 9.2 L 7.9 L (13.0-17.5) gm/dL Hct 28.1 L 22.2 L (39.0-53.0) % MCV 100.6 H (80.0-100.0) fL Neutrophils # 7.8 H (1.3-7.7) k/uL Lymphocytes # 0.7 L 0.9 L (1.0-4.8) k/uL PT (9.0-12.0) sec INR (<1.2) Chloride (98-107) mmol/L Carbon Dioxide (22-30) mmol/L Calcium (8.4-10.2) mg/dL Total Bilirubin (0.2-1.3) mg/dL Total Protein (6.3-8.2) g/dL Albumin (3.5-5.0) g/dL Crossmatch See Detail 01/02/17 01/02/17 01/02/17 Range/Units 03:50 03:57 03:57 RBC 2.42 L (4.30-5.90) m/uL Hgb 7.8 L (13.0-17.5) gm/dL Hct 23.8 L (39.0-53.0) % MCV (80.0-100.0) fL Neutrophils # (1.3-7.7) k/uL Lymphocytes # 0.8 L (1.0-4.8) k/uL PT 29.1 H (9.0-12.0) sec INR 3.0 H (<1.2) Chloride 116 H (98-107) mmol/L Carbon Dioxide 20 L (22-30) mmol/L Calcium 6.9 L (8.4-10.2) mg/dL Total Bilirubin 2.2 H (0.2-1.3) mg/dL Total Protein 3.9 L (6.3-8.2) g/dL Albumin 2.0 L (3.5-5.0) g/dL Crossmatch 01/02/17 Range/Units 09:29 RBC 2.06 L (4.30-5.90) m/uL Hgb 6.7 L* (13.0-17.5) gm/dL Hct 20.0 L* (39.0-53.0) % MCV (80.0-100.0) fL Neutrophils # (1.3-7.7) k/uL Lymphocytes # 0.9 L (1.0-4.8) k/uL PT (9.0-12.0) sec INR (<1.2) Chloride (98-107) mmol/L Carbon Dioxide (22-30) mmol/L Calcium (8.4-10.2) mg/dL Total Bilirubin (0.2-1.3) mg/dL Total Protein (6.3-8.2) g/dL Albumin (3.5-5.0) g/dL Crossmatch Assessment and Plan Plan: Impression: #1 Acute gastrointestinal bleeding suspect secondary to sigmoid diverticula. The patient continued to bleed on and off throughout the night and his last bowel movement that was bloody was earlier this morning and hemoglobin is down to 6.7. Still on no pressors and hemodynamically stable. #2 Hypotension secondary to above requiring fluid resuscitation. No pressors currently. #3 Acute mild anemia secondary to above, continue to monitor hemoglobins every 4 hours. The patient will be given 2 units of packed RBC. The patient's coagulopathy will be also reverse. #4 Atrial fibrillation/flutter, anticoagulated with warfarin, the patient was given vitamin K and the patient will be given fresh frozen plasma to0 today. #5 Generalized myalgia with joint pain maintained on Aleve 1 #6 History of mitral valve repair. #7 History of myocardial infarction. #8 Hyperlipidemia. Plan Transfuse her 2 units of fresh frozen plasma 2 units of packed RBC. Obtain a follow-up hemoglobin. Monitor PT/INR and anticipated up an INR to evaluate of less than 2 today. General surgeries on the case. Continue IV fluids. Monitor hemoglobin every 4 hours. Keep the patient in ICU. If things stabilize the patient will be having a colonoscopy in a.m. We'll continue to follow. Keep the patient in ICU for now.
[2017-01-02 14:37] LABS: Basophils % (A) 0 %; CH 32.9; CHCM 34.7; Eosinophils % (A) 0 %; HDW 2.89; Luc # (Auto) 0.07; Luc % (Auto) 1; Lymphocytes # (A) 0.7 k/uL (1.0-4.8); Lymphocytes % (A) 11 %; MCH 32.3 pg (25.0-35.0); MCHC 33.9 g/dL (31.0-37.0); MCV 95.3 fL (80.0-100.0); Mean Platelet Volume 7.9; Monocytes # (A) 0.4 k/uL (0-1.0); Monocytes % (A) 6 %; Neutrophils # (A) 5.3 k/uL (1.3-7.7); Neutrophils % (A) 82 %; RBC 1.93 m/uL (4.30-5.90); RDW 14.9 % (11.5-15.5); WBC 6.5 k/uL (3.8-10.6); WBC (Perox) 6.51
[2017-01-02 14:38] LABS: HCT 18.4 % (39.0-53.0); HGB 6.2 gm/dL (13.0-17.5)
--- NOTE | 2017-01-02 15:53 | P.PN ---
Subjective 66-year-old male being seen this morning in the ICU with Dr. Sharma. Patient is sitting up in bed. Patient is awake and alert. Patient continues to have bright red rectal bleeding. Patient is being followed by GI service. Tentative plan is for endoscopic defer to GI to the timing. Hemoglobin down to 6.7. Patients plan today is to receive 2 units of packed red blood cells and fresh frozen plasma. INR today 3 patient has received vitamin K. 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 Q8H [facility] Rx#:[id number] Sodium Chloride 0.9% 1, 1000 000 ml @ 999 mls/hr IV . Q1H1M ONE Rx#:[id number] Intake, IV Titration 1500 125 Amount Sodium Chloride 0.9% 1, 500 125 000 ml @ 125 mls/hr IV . Q8H [facility] Rx#:[id number] Sodium Chloride 0.9% 1, 1000 000 ml @ 999 mls/hr IV . Q1H1M ONE Rx#:[id number] Oral 100 Blood Product 310 712 Ffp 24 Cp2d Unit 191 [id number] Ffp 24 Cp2d Unit 211 [id number] Rc As-1 Unit 310 [id number] Rc As-1 Unit 0 [id number] Rc As-3 Unit 310 [id number] Output: Urine 950 250 Stool 200 Other: Voiding Method Urinal Urinal # Voids 1 0 1 # Bowel Movements 1 2 1 - Exam Physical exam 66-year-old male sitting up in bed aware of the plan of care. Does not appear in any acute distress Lungs essentially clear adequate air movement bilaterally no cough noted no shortness of breath Heart S1-S2 audible regular no murmur Abdomen soft patient continues to have bloody stools no nausea no vomiting currently is denying any abdominal pain when questioning Extremities no edema noted - Labs CBC & Chem 7: 01/02/17 13:50 01/02/17 03:57 Labs: Abnormal Lab Results - Last 24 Hours (Table) 01/01/17 01/01/17 01/01/17 Range/Units 08:40 17:39 21:25 RBC 2.79 L 2.28 L (4.30-5.90) m/uL Hgb 9.2 L 7.9 L (13.0-17.5) gm/dL Hct 28.1 L 22.2 L (39.0-53.0) % MCV 100.6 H (80.0-100.0) fL Plt Count (150-450) k/uL Neutrophils # 7.8 H (1.3-7.7) k/uL Lymphocytes # 0.7 L 0.9 L (1.0-4.8) k/uL PT (9.0-12.0) sec INR (<1.2) Chloride (98-107) mmol/L Carbon Dioxide (22-30) mmol/L Calcium (8.4-10.2) mg/dL Total Bilirubin (0.2-1.3) mg/dL Total Protein (6.3-8.2) g/dL Albumin (3.5-5.0) g/dL Crossmatch See Detail 01/02/17 01/02/17 01/02/17 Range/Units 03:50 03:57 03:57 RBC 2.42 L (4.30-5.90) m/uL Hgb 7.8 L (13.0-17.5) gm/dL Hct 23.8 L (39.0-53.0) % MCV (80.0-100.0) fL Plt Count (150-450) k/uL Neutrophils # (1.3-7.7) k/uL Lymphocytes # 0.8 L (1.0-4.8) k/uL PT 29.1 H (9.0-12.0) sec INR 3.0 H (<1.2) Chloride 116 H (98-107) mmol/L Carbon Dioxide 20 L (22-30) mmol/L Calcium 6.9 L (8.4-10.2) mg/dL Total Bilirubin 2.2 H (0.2-1.3) mg/dL Total Protein 3.9 L (6.3-8.2) g/dL Albumin 2.0 L (3.5-5.0) g/dL Crossmatch 01/02/17 01/02/17 Range/Units 09:29 13:50 RBC 2.06 L 1.93 L (4.30-5.90) m/uL Hgb 6.7 L* 6.2 L* (13.0-17.5) gm/dL Hct 20.0 L* 18.4 L* (39.0-53.0) % MCV (80.0-100.0) fL Plt Count 121 L (150-450) k/uL Neutrophils # (1.3-7.7) k/uL Lymphocytes # 0.9 L 0.7 L (1.0-4.8) k/uL PT (9.0-12.0) sec INR (<1.2) Chloride (98-107) mmol/L Carbon Dioxide (22-30) mmol/L Calcium (8.4-10.2) mg/dL Total Bilirubin (0.2-1.3) mg/dL Total Protein (6.3-8.2) g/dL Albumin (3.5-5.0) g/dL Crossmatch Assessment and Plan Plan: Impression Acute symptomatic lower GI bleed suspect due to a diverticular bleed exacerbated by coagulopathy Coumadin induced Mitral valve repair 2000 Acute blood loss anemia due to a lower GI bleed A recent laparoscopic hernia repair with mesh November 2016 Hyperlipidemia History of hemorrhoids History of diverticulosis with colon polyps last colonoscopy 4 years ago History of atrial fibrillations successfully ablated Plan Continue with the ICU management per the 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 Marylin Velez nurse practitioner acting as scribe for signing physician.
[2017-01-02 17:50] LABS: Basophils % (A) 0 %; CH 31.3; CHCM 33.9; Eosinophils # (A) 0.1 k/uL (0-0.7); Eosinophils % (A) 1 %; HCT 20.5 % (39.0-53.0); HDW 3.01; HGB 7.1 gm/dL (13.0-17.5); Luc % (Auto) 2; Lymphocytes # (A) 1.2 k/uL (1.0-4.8); Lymphocytes % (A) 18 %; MCH 32.1 pg (25.0-35.0); MCHC 34.5 g/dL (31.0-37.0); MCV 92.9 fL (80.0-100.0); Mean Platelet Volume 8.1; Monocytes # (A) 0.6 k/uL (0-1.0); Monocytes % (A) 9 %; Neutrophils # (A) 4.7 k/uL (1.3-7.7); Neutrophils % (A) 71 %; RBC 2.21 m/uL (4.30-5.90); RDW 15.5 % (11.5-15.5); WBC 6.6 k/uL (3.8-10.6)
[2017-01-02 18:01] LABS: INR 1.9 (<1.2); Prothrombin Time 17.9 sec (9.0-12.0)
[2017-01-02] MEDS ORDERED: PEG 3350-NA SULF,BICARB,CL/KCL 4,000 ML BOTTLE PO ONE (20:00)
[2017-01-02] MEDS: ATENOLOL 12.5 MG TAB PO SCH (20:05)
[2017-01-02] MEDS: ATORVASTATIN 20 MG TAB PO SCH (20:05)
[2017-01-02] MEDS: MONTELUKAST 10 MG TAB PO SCH (20:05)
[2017-01-02 21:31] LABS: Anisocytosis Slight; Basophils # (A) 0.1 k/uL (0-0.2); Basophils % (A) 1 %; CH 32.6; CHCM 35.5; Eosinophils # (A) 0.1 k/uL (0-0.7); Eosinophils % (A) 1 %; HCT 20.6 % (39.0-53.0); HDW 3.15; HGB 7.1 gm/dL (13.0-17.5); Luc # (Auto) 0.16; Luc % (Auto) 2; Lymphocytes # (A) 1.4 k/uL (1.0-4.8); Lymphocytes % (A) 19 %; MCH 31.9 pg (25.0-35.0); MCHC 34.5 g/dL (31.0-37.0); MCV 92.5 fL (80.0-100.0); Mean Platelet Volume 8.2; Monocytes # (A) 0.7 k/uL (0-1.0); Monocytes % (A) 9 %; Neutrophils # (A) 5.2 k/uL (1.3-7.7); Neutrophils % (A) 69 %; RBC 2.23 m/uL (4.30-5.90); RDW 16.3 % (11.5-15.5); WBC 7.7 k/uL (3.8-10.6); WBC (Perox) 7.46
[2017-01-03] MEDS: SODIUM CHLORIDE 0.9% 1,000 ML IV SCH ×3 (02:20→14:22)
[2017-01-03 04:55] LABS: Anisocytosis Slight; CH 32.6; CHCM 35.4; HCT 21.5 % (39.0-53.0); HGB 7.3 gm/dL (13.0-17.5); MCH 31.6 pg (25.0-35.0); MCHC 34.1 g/dL (31.0-37.0); MCV 92.7 fL (80.0-100.0); Mean Platelet Volume 8.6; RBC 2.32 m/uL (4.30-5.90); RDW 16.1 % (11.5-15.5); WBC 7.2 k/uL (3.8-10.6)
[2017-01-03 05:12] LABS: Anion Gap 2 mmol/L; Blood Urea Nitrogen 15 mg/dL (9-20); Calcium 6.8 mg/dL (8.4-10.2); Carbon Dioxide 24 mmol/L (22-30); Chloride 114 mmol/L (98-107); Glucose 92 mg/dL (74-99); Magnesium 2.2 mg/dL (1.6-2.3); Non-African American GFR(MDRD) >60 (>60 ml/min/1.73 sqM); Phosphorous 1.8 mg/dL (2.5-4.5); Potassium 3.8 mmol/L (3.5-5.1); Sodium 140 mmol/L (137-145)
[2017-01-03 05:15] LABS: INR 1.8 (<1.2); Prothrombin Time 17.5 sec (9.0-12.0)
[2017-01-03] MEDS ORDERED: Potassium Replacement Protocol 1 EACH MISC MISCELLANE PRN ×2 (05:25→05:45)
[2017-01-03] MEDS ORDERED: Phosphorus Replacement Protoco 1 EACH MISC MISCELLANE PRN (05:28)
[2017-01-03] MEDS ORDERED: SODIUM PHOSPHATE 10 MMOL in SODIUM CHLORIDE 0.9% 250 ML IVPB SCH (05:30)
[2017-01-03] MEDS: POTASSIUM CHLORIDE 10 MEQ, LIDOCAINE 2% INJ 10 MG in SODIUM CHLORIDE 0.9% 100 ML IV SCH ×2 (06:04→07:04)
[2017-01-03] MEDS ORDERED: PROPOFOL 10 MG/ML 20 ML VIAL IV ONE (07:37)
[2017-01-03] MEDS ORDERED: LIDOCAINE 1% INJ 10MG/ML (20 ML MDV) ONE (07:37)
[2017-01-03] MEDS ORDERED: PHENYLEPHRINE-0.9% NACL SYG 1 MG/10 ML SYRINGE ONE (07:37)
[2017-01-03] MEDS ORDERED: IV FLUID CONTINUATION 1,000 ML IV ONE (07:37)
--- NOTE | 2017-01-03 08:27 | P.PCN ---
Date of Procedure: 01/03/17 Preoperative Diagnosis: Postoperative Diagnosis: Procedure(s) Performed: Procedures: Esophagogastroduodenoscopy. Total colonoscopy. Preoperative diagnosis: GI bleeding and anemia. Postoperative diagnosis: Small hiatal hernia with no evidence of acute esophagitis, mucosal tears or varices. Normal stomach and duodenum without ulcers or active bleeding. Diffuse diverticulosis of the colon with no evidence of active bleeding at the time of the exam. Preparation: GoLYTELY prep. Sedation: Was provided by anesthesia. Brief clinical history: The patient is a 66-year-old male with past medical history of diverticulosis, atrial fibrillation with Coumadin monitoring and mitral valve repair who presented with painless rectal bleeding associated with lightheadedness that started early a.m. the day of admission. He passed multiple bright red maroon bowel movements with clots. No hematemesis or melena. No history GI bleed in the past. Last colonoscopy around 6 years ago showed polyps and diverticular disease. Had EGD many years ago. Had robotic right inguinal hernia repair with mesh last month. Patient consumes 2 beers on a daily basis for many years. He also takes one tablet of Aleve daily. Admission hemoglobin 10.1 dropped to 6.2. Received 2 units of packed cells and the hemoglobin is now stable around 7.2 Platelet 172. INR 4.2 received vitamin K and FFP. This morning 1.9. CT abdomen and pelvis sigmoid diverticula without diverticulitis. His bleeding has tapered yesterday and we prepared him for these exams overnight. The details are summarized in the history and physical and dictated consultations and progress notes. Procedure: With the patient on his left lateral decubitus position and after informed consent and adequate sedation, I passed the Olympus-GIF 160 video upper endoscope through the cricopharyngeus down the esophagus. GE junction was around 40 cm from the incisors and there was a small sliding hiatal hernia. There was no obvious esophagitis or any mucosal tears, varices or bleeding. There was a nonobstructing benign short stricture at the level of the GE junction and early pseudodiverticula patient of the esophagus proximal to that indicative of prior episodes of esophagitis and healing but there was no obstruction to the passing of the endoscope. The endoscope was then passed into the stomach which was insufflated with air and inspected in detail including the retroflex view in the cardia. Finally the endoscope was passed through the pylorus into the duodenum. Pyloric channel, duodenal bulb, post bulbar area and descending duodenum appeared healthy with no ulcers or bleeding. The stomach did not show any abnormalities. All secretions and esophagus, stomach and duodenum were clear or bilious in color. No biopsies were indicated then I proceeded with the colonoscopy. Perianal area did not show any fissures or fistulas. There were no masses felt on digital rectal examination. The Olympus CFQ 160L video colonoscope was then inserted in the rectum and the usual fashion and advanced to the cecum. There were diffuse diverticulosis with multiple diverticular orifices seen scattered along the length of the bowel most prominent on the left side with her was on the right side few where and smaller. There was no evidence of active bleeding , however, the fecal rule out there was pinkish in several areas both on the right and left side. There was no blood or clots. The mucosa appeared healthy. No polyps or tumors were seen. I retroflexed endoscope in the rectum before the endoscope was withdrawn. The patient tolerated the procedure well. Plan: The patient and his son were reassured. Will allow full fluids. I believe diverticulosis was the underlying cause of his bleeding that could have been facilitated by his coagulopathy. Once we have evidence of bleeding has subsided completely, his anticoagulation can be resumed if clinically indicated. Implants: Indications for Procedure: Operative Findings: Description of Procedure:
[2017-01-03 09:27] LABS: Anisocytosis Slight; CH 32.3; CHCM 34.5; HCT 21.5 % (39.0-53.0); HDW 3.06; HGB 7.4 gm/dL (13.0-17.5); MCH 32.6 pg (25.0-35.0); MCHC 34.6 g/dL (31.0-37.0); MCV 94.3 fL (80.0-100.0); Mean Platelet Volume 7.8; RBC 2.28 m/uL (4.30-5.90)
[2017-01-03] MEDS: PANTOPRAZOLE 40 MG/10 ML VIAL IVP SCH ×2 (10:07→20:59)
[2017-01-03] MEDS: AMIODARONE 100 MG TAB PO SCH (10:07)
--- NOTE | 2017-01-03 12:16 | P.PN ---
Subjective 66-year-old male being seen in the intensive care unit this morning. Patient is denying any abdominal pain denies any abdominal cramping no nausea no vomiting. Patient states feels "better this morning patient had this morning an EGD and a total colonoscopy by GI service this morning as part of a workup for GI bleed with symptomatic anemia. Did review the operative findings showed a small hiatal hernia with no evidence of acute esophagitis mucus tear or varices. Normal stomach and duodenum without ulcers no bleeding. Diffuse diverticulosis of the colon with no evidence of active bleed Objective - Vital Signs Vital signs: Vital Signs Temp 98.2 F 01/03/17 08:00 Pulse 68 01/03/17 11:00 Resp 16 01/03/17 11:07 BP 109/65 01/03/17 11:00 Pulse Ox 97 01/03/17 11:00 Intake & Output 01/02/17 01/03/17 01/03/17 18:59 06:59 18:59 Intake Total 2822 6580 920 Output Total 550 1025 450 Balance 2272 5555 470 Weight 82 kg Intake: IV 1700 1600 920 Magnesium Sulfate-D5w Pmx 200 1 gm In Dextrose/Water 1 100ml.bag @ 100 mls/hr IVPB Q1H [facility] Rx#: [id number] Potassium Chloride 10 meq 100 100 Lidocaine 2% Inj 10 mg In Sodium Chloride 0.9% 100 ml @ 100 mls/hr IV Q1HR [facility] Rx#:[id number] Sodium Chloride 0.9% 1, 1500 1250 520 000 ml @ 125 mls/hr IV . Q8H [facility] Rx#:[id number] Sodium Chloride 0.9% 1, 250 000 ml @ 999 mls/hr IV . Q1H1M [facility] Rx#:[id number] Oral 100 4360 Blood Product 1022 620 Ffp 24 Cp2d Unit 191 [id number] Ffp 24 Cp2d Unit 211 [id number] Rc As-1 Unit 310 [id number] Rc As-1 Unit 310 [id number] Rc As-1 Unit 310 [id number] Output: Urine 350 1025 450 Stool 200 Other: Voiding Method Urinal Urinal Urinal # Voids 1 1 # Bowel Movements 1 1 1 - Exam Physical exam 66-year-old sitting up in the ICU just returned from having EGD and colonoscopy this morning hemoglobin this morning 7.4 pleasant cooperative oriented 3 denying chest pain denying dizziness lightheadedness denying shortness of breath Lungs essentially clear with adequate air movement bilaterally on room air sats are 97% Heart S1-S2 audible and regular denying chest pain Abdomen soft nontender no reports of nausea vomiting Extremities no edema noted - Labs CBC & Chem 7: 01/03/17 09:04 01/03/17 04:44 Labs: Abnormal Lab Results - Last 24 Hours (Table) 01/01/17 01/02/17 01/02/17 Range/Units 08:40 13:50 17:39 RBC 1.93 L 2.21 L (4.30-5.90) m/uL Hgb 6.2 L* 7.1 L (13.0-17.5) gm/dL Hct 18.4 L* 20.5 L (39.0-53.0) % RDW (11.5-15.5) % Plt Count 121 L 104 L (150-450) k/uL Lymphocytes # 0.7 L (1.0-4.8) k/uL PT (9.0-12.0) sec INR (<1.2) Chloride (98-107) mmol/L Calcium (8.4-10.2) mg/dL Phosphorus (2.5-4.5) mg/dL Crossmatch See Detail 01/02/17 01/02/17 01/03/17 Range/Units 17:39 21:18 04:44 RBC 2.23 L (4.30-5.90) m/uL Hgb 7.1 L (13.0-17.5) gm/dL Hct 20.6 L (39.0-53.0) % RDW 16.3 H (11.5-15.5) % Plt Count 115 L (150-450) k/uL Lymphocytes # (1.0-4.8) k/uL PT 17.9 H 17.5 H (9.0-12.0) sec INR 1.9 H 1.8 H (<1.2) Chloride (98-107) mmol/L Calcium (8.4-10.2) mg/dL Phosphorus (2.5-4.5) mg/dL Crossmatch 01/03/17 01/03/17 01/03/17 Range/Units 04:44 04:44 09:04 RBC 2.32 L 2.28 L (4.30-5.90) m/uL Hgb 7.3 L 7.4 L (13.0-17.5) gm/dL Hct 21.5 L 21.5 L (39.0-53.0) % RDW 16.1 H 16.0 H (11.5-15.5) % Plt Count 98 L 105 L (150-450) k/uL Lymphocytes # (1.0-4.8) k/uL PT (9.0-12.0) sec INR (<1.2) Chloride 114 H (98-107) mmol/L Calcium 6.8 L (8.4-10.2) mg/dL Phosphorus 1.8 L (2.5-4.5) mg/dL Crossmatch Assessment and Plan Plan: Impression Acute symptomatic lower GI bleed suspect due to a diverticular bleed exacerbated by coagulopathy Coumadin induced Mitral valve repair 2000 Acute blood loss anemia due to a lower GI bleed A recent laparoscopic hernia repair with mesh November 2016 Hyperlipidemia History of hemorrhoids History of diverticulosis with colon polyps last colonoscopy 4 years ago History of atrial fibrillations successfully ablated status post January 03 EGD and total colonoscopy showed small hiatal hernia with no evidence of acute esophagitis mucus tear or varices. Normal stomach and duodenum without ulcer or active bleeding, diffuse diverticulosis of the colon was no evidence of active bleed at this time Plan no evidence of an acute surgical abdomen further surgical recommendations at this time Continue with the ICU management per the hoist worker service Monitor hemoglobin attempt keep the hemoglobin greater than 7.5 The above impression and plan of care have been discussed and directed by signing physician. Marylin Velez nurse practitioner acting as scribe for signing physician.
[2017-01-03 13:45] LABS: CH 31.5; CHCM 34.2; HCT 22.4 % (39.0-53.0); HDW 3.05; HGB 7.8 gm/dL (13.0-17.5); MCH 32.4 pg (25.0-35.0); MCHC 34.9 g/dL (31.0-37.0); MCV 92.9 fL (80.0-100.0); Mean Platelet Volume 7.4; RBC 2.41 m/uL (4.30-5.90); RDW 15.7 % (11.5-15.5); WBC 7.8 k/uL (3.8-10.6)
--- NOTE | 2017-01-03 14:01 | P.PN ---
Subjective This is a very pleasant 66-year-old gentleman who follows with Dr. Chan as his primary care physician. He has a history of coronary artery disease with previous myocardial infarction, atrial fibrillation/flutter status post cardioversion and ablation he spent anticoagulated with warfarin since June 2015, hyperlipidemia, mitral valve repair. He did have a recent laparoscopic abdominal hernia repair He is a lifelong nonsmoker. He presented to the emergency room early this morning after having multiple episodes of bright red rectal bleeding which started approximately 1:00 this morning. He does have a prior history of diverticular disease on previous colonoscopy. He has not had any issues with supra therapeutic INR is in the past. He does take Aleve 1 tablet daily and 81 mg aspirin. His hemoglobin is 11.9. INR 4.2. Stool for occult blood is positive. He has been seen and evaluated by surgical services. The patient also was found to be hypotensive with systolic blood pressure in the 80s. He is currently seen in 1 L of normal saline fluid resuscitation. A computed tomography scan of the abdomen and pelvis did reveal sigmoid diverticula without acute diverticulitis. 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 He'll be transferred to the intensive care unit will be following him for the same. On 01/02/2017 the patient is being seen in follow-up. The patient has lost significant amount of blood secondary to episodic GI bleeding. His last GI bleed was earlier this morning where he had large amount of bloody bowel movement, maroon colored with some clots. Morning hemoglobin was 6.7. The patient will be given packed RBC transfusion. A total of 2 units was ordered. He'll be also given 2 units of fresh frozen plasma knowing that her INR was still elevated at 3.0 this morning. No abdominal pain. No nausea. No vomiting. No emesis. No hypotension. He has adequate urine output. No change in mental status. General surgeries on the case. GI is also on the case. The patient will be kept in ICU for further monitoring. The patient was seen again today 01/03/2017 in follow-up in the intensive care unit. He is awake and alert in no acute distress. He did undergo a EGD which revealed a small hiatal hernia without evidence of acute esophagitis, mucosal tears or varices. There was a normal stomach and duodenum without ulcers or active bleeding. The colonoscopy did reveal diffuse diverticulosis of the colon with no evidence of active bleeding at the time. He has not had any further bloody bowel movements. He did require a total of 4 units of packed red blood cells and 2 units of fresh frozen plasma. His current hemoglobin is 7.8. Platelet count 124,000. INR 1.8. His warfarin remains on hold. He has remained hemodynamically stable. Objective - Vital Signs Vital signs: Vital Signs Temp 98.2 F 01/03/17 08:00 Pulse 68 01/03/17 11:00 Resp 16 01/03/17 11:07 BP 109/65 01/03/17 11:00 Pulse Ox 97 01/03/17 11:00 Intake & Output 01/02/17 01/03/17 01/03/17 18:59 06:59 18:59 Intake Total 2822 6580 920 Output Total 550 1025 450 Balance 2272 5555 470 Weight 82 kg Intake: IV 1700 1600 920 Magnesium Sulfate-D5w Pmx 200 1 gm In Dextrose/Water 1 100ml.bag @ 100 mls/hr IVPB Q1H [facility] Rx#: [id number] Potassium Chloride 10 meq 100 100 Lidocaine 2% Inj 10 mg In Sodium Chloride 0.9% 100 ml @ 100 mls/hr IV Q1HR [facility] Rx#:[id number] Sodium Chloride 0.9% 1, 1500 1250 520 000 ml @ 125 mls/hr IV . Q8H [facility] Rx#:[id number] Sodium Chloride 0.9% 1, 250 000 ml @ 999 mls/hr IV . Q1H1M [facility] Rx#:[id number] Oral 100 4360 Blood Product 1022 620 Ffp 24 Cp2d Unit 191 [id number] Ffp 24 Cp2d Unit 211 [id number] Rc As-1 Unit 310 [id number] Rc As-1 Unit 310 [id number] Rc As-1 Unit 310 [id number] Output: Urine 350 1025 450 Stool 200 Other: Voiding Method Urinal Urinal Urinal # Voids 1 1 # Bowel Movements 1 1 1 - Exam The patient appeared well nourished and normally developed. Vital signs as documented. Head exam is unremarkable. No scleral icterus or corneal arcus noted. Neck is without jugular venous distension, thyromegaly, or carotid bruits. Carotid upstrokes are brisk bilaterally. Lungs are clear to auscultation and percussion. Cardiac exam reveals the PMI to be normally sized and situated. Rhythm is regular. First and second heart sounds normal. No murmurs, rubs or gallops. Abdominal exam reveals normal bowel sounds, no masses , no organomegaly and no aortic enlargement. Extremities are nonedematous and both femoral and pedal pulses are normal. - Labs CBC & Chem 7: 01/03/17 13:19 01/03/17 04:44 Labs: Abnormal Lab Results - Last 24 Hours (Table) 01/01/17 01/02/17 01/02/17 Range/Units 08:40 13:50 17:39 RBC 1.93 L 2.21 L (4.30-5.90) m/uL Hgb 6.2 L* 7.1 L (13.0-17.5) gm/dL Hct 18.4 L* 20.5 L (39.0-53.0) % RDW (11.5-15.5) % Plt Count 121 L 104 L (150-450) k/uL Lymphocytes # 0.7 L (1.0-4.8) k/uL PT (9.0-12.0) sec INR (<1.2) Chloride (98-107) mmol/L Calcium (8.4-10.2) mg/dL Phosphorus (2.5-4.5) mg/dL Crossmatch See Detail 01/02/17 01/02/17 01/03/17 Range/Units 17:39 21:18 04:44 RBC 2.23 L (4.30-5.90) m/uL Hgb 7.1 L (13.0-17.5) gm/dL Hct 20.6 L (39.0-53.0) % RDW 16.3 H (11.5-15.5) % Plt Count 115 L (150-450) k/uL Lymphocytes # (1.0-4.8) k/uL PT 17.9 H 17.5 H (9.0-12.0) sec INR 1.9 H 1.8 H (<1.2) Chloride (98-107) mmol/L Calcium (8.4-10.2) mg/dL Phosphorus (2.5-4.5) mg/dL Crossmatch 01/03/17 01/03/17 01/03/17 Range/Units 04:44 04:44 09:04 RBC 2.32 L 2.28 L (4.30-5.90) m/uL Hgb 7.3 L 7.4 L (13.0-17.5) gm/dL Hct 21.5 L 21.5 L (39.0-53.0) % RDW 16.1 H 16.0 H (11.5-15.5) % Plt Count 98 L 105 L (150-450) k/uL Lymphocytes # (1.0-4.8) k/uL PT (9.0-12.0) sec INR (<1.2) Chloride 114 H (98-107) mmol/L Calcium 6.8 L (8.4-10.2) mg/dL Phosphorus 1.8 L (2.5-4.5) mg/dL Crossmatch 01/03/17 Range/Units 13:19 RBC 2.41 L (4.30-5.90) m/uL Hgb 7.8 L (13.0-17.5) gm/dL Hct 22.4 L (39.0-53.0) % RDW 15.7 H (11.5-15.5) % Plt Count 124 L (150-450) k/uL Lymphocytes # (1.0-4.8) k/uL PT (9.0-12.0) sec INR (<1.2) Chloride (98-107) mmol/L Calcium (8.4-10.2) mg/dL Phosphorus (2.5-4.5) mg/dL Crossmatch Assessment and Plan Plan: Impression: #1 Acute gastrointestinal bleeding suspect secondary to sigmoid diverticula. Status post 4 units of packed red blood cells. EGD revealed no evidence of bleeding. Colonoscopy revealed diffuse diverticulosis with no active bleeding. #2 Hypotension secondary to above requiring fluid resuscitation. No pressors currently. Recovered. #3 Acute mild anemia secondary to above, continue to monitor hemoglobins every 4 hours. No further active bleeding. Current hemoglobin 7.8. #4 Atrial fibrillation/flutter, anticoagulated with warfarin, supratherapeutic at 4.2. On hold due to GI bleed. Did receive 2 units of fresh frozen plasma. Current INR 1.8. #5 Generalized myalgia with joint pain maintained on Aleve 1 tablet daily. #6 History of mitral valve repair. #7 History of myocardial infarction. #8 Hyperlipidemia. Plan: The patient was seen and evaluated by Dr. Hoff. The patient is stable from the critical care standpoint and will be transferred out of the ICU today. We will follow him on an as-needed basis.
--- NOTE | 2017-01-03 14:10 | P.PN ---
Subjective This is a 66-year-old male one of Dr. Chan with a previous medical history significant for coronary artery disease status post myocardial infarction, atrial flutter/fibrillation status post cardiac ablation with chronic anticoagulation on Coumadin, history of mitral valve disease status post mitral valve repair back in 1999 at the [facility], hyperlipidemia, ALLERGIC rhinitis, diverticulosis, patient was in his usual state of health about a 1:00 in the morning today when he woke up complaining of increased abdominal cramps associate with nausea he ended up going to the bathroom and he had significant bright red blood per rectum he thought that he is having diarrhea at that time. He continued to have diarrhea up to 8:00 in the morning he went and had a shower and he felt quite dizzy lightheaded he drove himself to the hospital while he was walking in the parking lot he almost passed out he was seen in the ER he was found to have a low hemoglobin his previous hemoglobin was around 14 and his hemoglobin is found up to be 11 he had dropped to use 3-1/2 g from the last one, patient did have a recent laparoscopic abdominal hernia repair on 11/26/2016 that was done by Dr. Bhatia, patient ended up the admitted to the hospital for lower GI bleed he was admitted to intensive care unit. He was started on IV fluid resuscitation the form of normal saline at 125 mL an hour, CBC every 4 hours for the next 24 hours, we will transfuse for hemoglobin less than 7. 8/: Patient is now status post transfusion 2 units packed RBCs and fresh frozen plasma. Hemoglobin this morning was 6.7. He continues to have bright red rectal bleeding. GI is on consult with plan for endoscopy on Saturday. INR today is at 3 status post 1 dose of vitamin K. He is followed by Dr. Hoff for intensive care management, general surgeon Dr. Bennett Yusuf, and Dr. House from GI. 01/03: Patient is undergone EGD and colonoscopy with Dr. House with findings of small hiatal hernia with no evidence of acute esophagitis, mucosal tears or varices. Normal stomach and duodenum without ulcers or active bleeding. Diffuse diverticulosis of the colon with no evidence of active bleeding at the time of exam. INR is 1.8. Hemoglobin currently 7.3. Patient is status post transfusion of 4 units of packed RBCs and also fresh frozen plasma. Patient's blood pressure remains on the low side but does not require vasopressors. Patient will be transferred to [facility]. Objective - Vital Signs Vital signs: Vital Signs Temp 98.4 F 01/03/17 04:00 Pulse 75 01/03/17 07:00 Resp 12 01/03/17 07:00 BP 106/60 01/03/17 07:00 Pulse Ox 99 01/03/17 07:00 Intake & Output 01/02/17 01/03/17 01/03/17 18:59 06:59 18:59 Intake Total 2822 6580 525 Output Total 550 1025 150 Balance 2272 5555 375 Weight 82 kg Intake: IV 1700 1600 525 Magnesium Sulfate-D5w Pmx 200 1 gm In Dextrose/Water 1 100ml.bag @ 100 mls/hr IVPB Q1H [facility] Rx#: [id number] Potassium Chloride 10 meq 100 100 Lidocaine 2% Inj 10 mg In Sodium Chloride 0.9% 100 ml @ 100 mls/hr IV Q1HR [facility] Rx#:[id number] Sodium Chloride 0.9% 1, 1500 1250 125 000 ml @ 125 mls/hr IV . Q8H [facility] Rx#:[id number] Sodium Chloride 0.9% 1, 250 000 ml @ 999 mls/hr IV . Q1H1M [facility] Rx#:[id number] Oral 100 4360 Blood Product 1022 620 Ffp 24 Cp2d Unit 191 [id number] Ffp 24 Cp2d Unit 211 [id number] Rc As-1 Unit 310 [id number] Rc As-1 Unit 310 [id number] Rc As-1 Unit 310 [id number] Output: Urine 350 1025 150 Stool 200 Other: Voiding Method Urinal Urinal # Voids 1 # Bowel Movements 1 1 - Exam General appearance: mild distress - EENT Eyes: anicteric sclerae, EOMI, PERRLA, no ptosis, no scleral icterus, normal appearance ENT: hearing grossly normal, NA/AT, normal oropharynx, no thrush Ears: bilateral: normal - Neck Neck: no lymphadenopathy, normal ROM, no rigidity, no stridor, no thyromegaly Carotids: bilateral: upstroke normal Thyroid: bilateral: normal size - Respiratory Respiratory: bilateral: diminished, negative: dullness, rales, rhonchi, wheezing , prolonged expiration - Cardiovascular Rhythm: regular Heart sounds: normal: S1, S2 Abnormal Heart Sounds: no systolic murmur, no S3 Gallop, no S4 Gallop, no click - Gastrointestinal General gastrointestinal: normal bowel sounds, soft, no splenomegaly, no umbilical hernia, no ventral hernia - Integumentary Integumentary: normal, normal turgor - Neurologic Neurologic: CNII-XII intact - Musculoskeletal Musculoskeletal: generalized weakness, strength equal bilaterally - Psychiatric Psychiatric: A&O x's 3, appropriate affect, intact judgment & insight - Labs CBC & Chem 7: 01/03/17 13:19 01/03/17 04:44 Labs: Abnormal Lab Results - Last 24 Hours (Table) 01/01/17 01/02/17 01/02/17 Range/Units 08:40 09:29 13:50 RBC 2.06 L 1.93 L (4.30-5.90) m/uL Hgb 6.7 L* 6.2 L* (13.0-17.5) gm/dL Hct 20.0 L* 18.4 L* (39.0-53.0) % RDW (11.5-15.5) % Plt Count 121 L (150-450) k/uL Lymphocytes # 0.9 L 0.7 L (1.0-4.8) k/uL PT (9.0-12.0) sec INR (<1.2) Chloride (98-107) mmol/L Calcium (8.4-10.2) mg/dL Phosphorus (2.5-4.5) mg/dL Crossmatch See Detail 01/02/17 01/02/17 01/02/17 Range/Units 17:39 17:39 21:18 RBC 2.21 L 2.23 L (4.30-5.90) m/uL Hgb 7.1 L 7.1 L (13.0-17.5) gm/dL Hct 20.5 L 20.6 L (39.0-53.0) % RDW 16.3 H (11.5-15.5) % Plt Count 104 L 115 L (150-450) k/uL Lymphocytes # (1.0-4.8) k/uL PT 17.9 H (9.0-12.0) sec INR 1.9 H (<1.2) Chloride (98-107) mmol/L Calcium (8.4-10.2) mg/dL Phosphorus (2.5-4.5) mg/dL Crossmatch 01/03/17 01/03/17 01/03/17 Range/Units 04:44 04:44 04:44 RBC 2.32 L (4.30-5.90) m/uL Hgb 7.3 L (13.0-17.5) gm/dL Hct 21.5 L (39.0-53.0) % RDW 16.1 H (11.5-15.5) % Plt Count 98 L (150-450) k/uL Lymphocytes # (1.0-4.8) k/uL PT 17.5 H (9.0-12.0) sec INR 1.8 H (<1.2) Chloride 114 H (98-107) mmol/L Calcium 6.8 L (8.4-10.2) mg/dL Phosphorus 1.8 L (2.5-4.5) mg/dL Crossmatch Assessment and Plan Plan: 1. Acute lower GI bleed most likely secondary to diverticular bleed exacerbated by coagulopathy from Coumadin. Transfer to selective care unit, Dr. Hoff on consult for intensive care management. GI on consult for EGD and colonoscopy as above. 2. Acute blood loss anemia due to lower GI bleed. Monitor CBC every 6 hours, transfuse for hemoglobin less than 7. 3. Mitral valve disorder status post mitral valve repair back in 2000. Stable at this point in time. 4. CAD post AK. Stable at this point in time. Discontinue aspirin. 5. History of atrial fibrillation/flutter status post ablation. Hold Coumadin for now. 6. Coagulopathy due to Coumadin use. Hold Coumadin monitor PT and INR. 7. Recent laparoscopic hernia repair with mesh in 11/26/2016. General surgery consultation. 8. ALLERGIC rhinitis. Continue singular 10 mg at bedtime. 9. Hyperlipidemia. Stable at this time. 10. History of hemorrhoids stable at this point in time. 11. History of diverticulosis and colon polyps last colonoscopy about 4 years ago. 12. DVT prophylaxis. Bilateral knee-high JESENIA hose discontinue Coumadin. 13. GI prophylaxis. Protonix 40 mg IV push every 12 hours. 14. Patient is full code. Discharge plan: Return home Impression and plan of care have been directed as dictated by the signing physician. Alisa Finnegan nurse practitioner acting as scribe for signing physician.
[2017-01-03] MEDS: ATENOLOL 12.5 MG TAB PO SCH (21:52)
[2017-01-03] MEDS: MONTELUKAST 10 MG TAB PO SCH (21:52)
[2017-01-03] MEDS: ATORVASTATIN 20 MG TAB PO SCH (21:52)
[2017-01-04 07:38] LABS: INR 1.3 (<1.2); Prothrombin Time 13.2 sec (9.0-12.0)
--- NOTE | 2017-01-04 07:52 | P.PN ---
Subjective Principal diagnosis: GI bleed s/p EGD Colonoscopy diverticular disease suspected to be source of bleed. No further bleeding. Tolerating soft diet. Denies abdominal pain. INR 1.3. CBC not available. Objective - Vital Signs Vital signs: Vital Signs Temp 98.1 F 01/04/17 07:00 Pulse 64 01/04/17 07:00 Resp 16 01/04/17 07:00 BP 111/59 01/04/17 07:00 Pulse Ox 98 01/04/17 07:00 Intake & Output 01/03/17 01/04/17 01/04/17 18:59 06:59 18:59 Intake Total 1680 Output Total 450 Balance 1230 Intake: IV 960 Potassium Chloride 10 meq 100 Lidocaine 2% Inj 10 mg In Sodium Chloride 0.9% 100 ml @ 100 mls/hr IV Q1HR [facility] Rx#:[id number] Sodium Chloride 0.9% 1, 560 000 ml @ 20 mls/hr IV . Q24H [facility] Rx#:[id number] Oral 720 Output: Urine 450 Other: Voiding Method Urinal Toilet # Voids 1 1 # Bowel Movements 1 - Exam General appearance: The patient is alert, oriented, in no acute distress. HET: Head is normocephalic and atraumatic. Pupils are equal and reactive. Oropharynx is clear without lesions. Neck: Supple without lymphadenopathy. Trachea midline. Heart: S1 S2. Regular rate and rhythm. Lungs: No crackles or wheezes are heard. Abdomen: Soft, nontender, nondistended with bowel sounds. No peritoneal signs. No palpable organomegaly or masses. Extremities: Normal skin color and turgor. No cyanosis, rash, ulceration, clubbing, or edema. Radial and pedal pulses are 2/4 bilaterally. Neurological: No focal deficits. Strength and sensation are grossly intact. - Labs CBC & Chem 7: 01/03/17 13:19 01/03/17 04:44 Labs: Abnormal Lab Results - Last 24 Hours (Table) 01/03/17 01/03/17 01/04/17 Range/Units 09:04 13:19 07:07 RBC 2.28 L 2.41 L (4.30-5.90) m/uL Hgb 7.4 L 7.8 L (13.0-17.5) gm/dL Hct 21.5 L 22.4 L (39.0-53.0) % RDW 16.0 H 15.7 H (11.5-15.5) % Plt Count 105 L 124 L (150-450) k/uL PT 13.2 H (9.0-12.0) sec INR 1.3 H (<1.2) Assessment and Plan (1) GI bleed Narrative/Plan: Diverticular bleed exacerbated by coumadin coagulopathy Status: Acute (2) Acute blood loss anemia Status: Acute (3) Warfarin-induced coagulopathy Status: Acute Plan: 1. DC per medicine. 2. May restart anticoagulation. Assessment and plan of care discussed with Dr. Peng
[2017-01-04] MEDS: PANTOPRAZOLE 40 MG/10 ML VIAL IVP SCH ×2 (08:22→20:35)
[2017-01-04] MEDS: AMIODARONE 100 MG TAB PO SCH (08:23)
[2017-01-04 08:29] LABS: Anion Gap 3 mmol/L; Blood Urea Nitrogen 8 mg/dL (9-20); Calcium 7.3 mg/dL (8.4-10.2); Carbon Dioxide 25 mmol/L (22-30); Chloride 111 mmol/L (98-107); Glucose 126 mg/dL (74-99); Magnesium 1.9 mg/dL (1.6-2.3); Non-African American GFR(MDRD) >60 (>60 ml/min/1.73 sqM); Phosphorous 2.1 mg/dL (2.5-4.5); Potassium 3.7 mmol/L (3.5-5.1); Sodium 139 mmol/L (137-145)
[2017-01-04 11:14] LABS: Anisocytosis Slight; Basophils % (A) 0 %; CH 32.5; CHCM 34.5; Eosinophils # (A) 0.1 k/uL (0-0.7); Eosinophils % (A) 2 %; HDW 2.95; Luc # (Auto) 0.07; Luc % (Auto) 1; Lymphocytes # (A) 0.7 k/uL (1.0-4.8); Lymphocytes % (A) 14 %; MCH 32.5 pg (25.0-35.0); MCHC 34.3 g/dL (31.0-37.0); MCV 94.7 fL (80.0-100.0); Mean Platelet Volume 8.2; Monocytes # (A) 0.3 k/uL (0-1.0); Monocytes % (A) 6 %; Neutrophils # (A) 3.9 k/uL (1.3-7.7); Neutrophils % (A) 76 %; RBC 2.08 m/uL (4.30-5.90); RDW 16.3 % (11.5-15.5); WBC 5.1 k/uL (3.8-10.6); WBC (Perox) 5.13
[2017-01-04 11:28] LABS: HGB 6.8 gm/dL (13.0-17.5)
[2017-01-04 11:29] LABS: HCT 19.7 % (39.0-53.0)
--- NOTE | 2017-01-04 12:54 | P.PN ---
Subjective This is a 66-year-old male one of Dr. Chan with a previous medical history significant for coronary artery disease status post myocardial infarction, atrial flutter/fibrillation status post cardiac ablation with chronic anticoagulation on Coumadin, history of mitral valve disease status post mitral valve repair back in 1999 at the [facility], hyperlipidemia, ALLERGIC rhinitis, diverticulosis, patient was in his usual state of health about a 1:00 in the morning today when he woke up complaining of increased abdominal cramps associate with nausea he ended up going to the bathroom and he had significant bright red blood per rectum he thought that he is having diarrhea at that time. He continued to have diarrhea up to 8:00 in the morning he went and had a shower and he felt quite dizzy lightheaded he drove himself to the hospital while he was walking in the parking lot he almost passed out he was seen in the ER he was found to have a low hemoglobin his previous hemoglobin was around 14 and his hemoglobin is found up to be 11 he had dropped to use 3-1/2 g from the last one, patient did have a recent laparoscopic abdominal hernia repair on 11/26/2016 that was done by Dr. Bhatia, patient ended up the admitted to the hospital for lower GI bleed he was admitted to intensive care unit. He was started on IV fluid resuscitation the form of normal saline at 125 mL an hour, CBC every 4 hours for the next 24 hours, we will transfuse for hemoglobin less than 7. 8/: Patient is now status post transfusion 2 units packed RBCs and fresh frozen plasma. Hemoglobin this morning was 6.7. He continues to have bright red rectal bleeding. GI is on consult with plan for endoscopy on Saturday. INR today is at 3 status post 1 dose of vitamin K. He is followed by Dr. Hoff for intensive care management, general surgeon Dr. Bennett Yusuf, and Dr. House from GI. 01/03: Patient is undergone EGD and colonoscopy with Dr. House with findings of small hiatal hernia with no evidence of acute esophagitis, mucosal tears or varices. Normal stomach and duodenum without ulcers or active bleeding. Diffuse diverticulosis of the colon with no evidence of active bleeding at the time of exam. INR is 1.8. Hemoglobin currently 7.3. Patient is status post transfusion of 4 units of packed RBCs and also fresh frozen plasma. Patient's blood pressure remains on the low side but does not require vasopressors. Patient will be transferred to med-surg. 01/04: states that he had a normal bowel movement this morning with no blood in it. He denies feeling tired or weak. He is very anxious to be discharged home. Hemoglobin today is at 6.8 and he will be transfused another unit of packed RBCs. Patient will stay overnight for monitoring and possible discharge by tomorrow. Objective - Vital Signs Vital signs: Vital Signs Temp 98.1 F 01/04/17 07:00 Pulse 64 01/04/17 08:00 Resp 16 01/04/17 08:00 BP 111/59 01/04/17 07:00 Pulse Ox 98 01/04/17 07:00 Intake & Output 01/03/17 01/04/17 01/04/17 18:59 06:59 18:59 Intake Total 1680 Output Total 450 Balance 1230 Intake: IV 960 Potassium Chloride 10 meq 100 Lidocaine 2% Inj 10 mg In Sodium Chloride 0.9% 100 ml @ 100 mls/hr IV Q1HR [facility] Rx#:[id number] Sodium Chloride 0.9% 1, 560 000 ml @ 20 mls/hr IV . Q24H [facility] Rx#:[id number] Oral 720 Output: Urine 450 Other: Voiding Method Urinal Toilet Toilet # Voids 1 1 # Bowel Movements 1 - Exam General appearance: mild distress - EENT Eyes: anicteric sclerae, EOMI, PERRLA, no ptosis, no scleral icterus, normal appearance ENT: hearing grossly normal, NA/AT, normal oropharynx, no thrush Ears: bilateral: normal - Neck Neck: no lymphadenopathy, normal ROM, no rigidity, no stridor, no thyromegaly Carotids: bilateral: upstroke normal Thyroid: bilateral: normal size - Respiratory Respiratory: bilateral: diminished, negative: dullness, rales, rhonchi, wheezing , prolonged expiration - Cardiovascular Rhythm: regular Heart sounds: normal: S1, S2 Abnormal Heart Sounds: no systolic murmur, no S3 Gallop, no S4 Gallop, no click - Gastrointestinal General gastrointestinal: normal bowel sounds, soft, no splenomegaly, no umbilical hernia, no ventral hernia - Integumentary Integumentary: normal, normal turgor - Neurologic Neurologic: CNII-XII intact - Musculoskeletal Musculoskeletal: generalized weakness, strength equal bilaterally - Psychiatric Psychiatric: A&O x's 3, appropriate affect, intact judgment & insight - Labs CBC & Chem 7: 01/04/17 07:07 01/04/17 07:07 Labs: Abnormal Lab Results - Last 24 Hours (Table) 01/03/17 01/04/17 01/04/17 Range/Units 13:19 07:07 07:07 RBC 2.41 L (4.30-5.90) m/uL Hgb 7.8 L (13.0-17.5) gm/dL Hct 22.4 L (39.0-53.0) % RDW 15.7 H (11.5-15.5) % Plt Count 124 L (150-450) k/uL PT 13.2 H (9.0-12.0) sec INR 1.3 H (<1.2) Chloride 111 H (98-107) mmol/L BUN 8 L (9-20) mg/dL Glucose 126 H (74-99) mg/dL Calcium 7.3 L (8.4-10.2) mg/dL Phosphorus 2.1 L (2.5-4.5) mg/dL Assessment and Plan Plan: 1. Acute lower GI bleed most likely secondary to diverticular bleed exacerbated by coagulopathy from Coumadin. [facility], Dr. Hoff on consult for intensive care management. GI on consult for EGD and colonoscopy as above. 2. Acute blood loss anemia due to lower GI bleed. Status post transfusion. 3. Mitral valve disorder status post mitral valve repair back in 2000. Stable at this point in time. 4. CAD post [place]. Stable at this point in time. Discontinue aspirin. 5. History of atrial fibrillation/flutter status post ablation. Hold Coumadin for now. 6. Coagulopathy due to Coumadin use. Hold Coumadin monitor PT and INR. 7. Recent laparoscopic hernia repair with mesh in 11/26/2016. General surgery consultation. 8. ALLERGIC rhinitis. Continue singular 10 mg at bedtime. 9. Hyperlipidemia. Stable at this time. 10. History of hemorrhoids stable at this point in time. 11. History of diverticulosis and colon polyps last colonoscopy about 4 years ago. 12. DVT prophylaxis. Bilateral knee-high JESENIA hose discontinue Coumadin. 13. GI prophylaxis. Protonix 40 mg IV push every 12 hours. 14. Patient is full code. Discharge plan: Return home Impression and plan of care have been directed as dictated by the signing physician. Alisa Finnegan nurse practitioner acting as scribe for signing physician.
--- NOTE | 2017-01-04 14:14 | P.PN ---
Subjective 66-year-old being seen this morning resting in bed there's been no new events. Patient states she's been up ambulating does not feel dizzy or lightheaded. Did note the hemoglobin of 6.8. Patient states he had a bowel movement there was no blood noted in the stool. No abdominal pain. The attending plans on transfusing 1 unit of packed red blood cells this morning. Objective - Vital Signs Vital signs: Vital Signs Temp 98.1 F 01/04/17 07:00 Pulse 64 01/04/17 08:00 Resp 16 01/04/17 08:00 BP 111/59 01/04/17 07:00 Pulse Ox 98 01/04/17 07:00 Intake & Output 01/03/17 01/04/17 01/04/17 18:59 06:59 18:59 Intake Total 1680 Output Total 450 Balance 1230 Intake: IV 960 Potassium Chloride 10 meq 100 Lidocaine 2% Inj 10 mg In Sodium Chloride 0.9% 100 ml @ 100 mls/hr IV Q1HR [facility] Rx#:[id number] Sodium Chloride 0.9% 1, 560 000 ml @ 20 mls/hr IV . Q24H [facility] Rx#:[id number] Oral 720 Output: Urine 450 Other: Voiding Method Urinal Toilet Toilet # Voids 1 1 # Bowel Movements 1 - Exam Physical exam 66-year-old sitting up in bed hemoglobin this morning 6.8 pleasant cooperative oriented 3 denying chest pain denying dizziness lightheadedness denying shortness of breath Lungs essentially clear with adequate air movement bilaterally on room air sats are 97% Heart S1-S2 audible and regular denying chest pain Abdomen soft nontender no reports of nausea vomiting states no blood noted in the stool had a bowel movement this morning denies any abdominal pain Extremities no edema noted - Labs CBC & Chem 7: 01/04/17 07:07 01/04/17 07:07 Labs: Abnormal Lab Results - Last 24 Hours (Table) 01/01/17 01/04/17 01/04/17 Range/Units 08:40 07:07 07:07 RBC (4.30-5.90) m/uL Hgb (13.0-17.5) gm/dL Hct (39.0-53.0) % RDW (11.5-15.5) % Plt Count (150-450) k/uL Lymphocytes # (1.0-4.8) k/uL PT 13.2 H (9.0-12.0) sec INR 1.3 H (<1.2) Chloride 111 H (98-107) mmol/L BUN 8 L (9-20) mg/dL Glucose 126 H (74-99) mg/dL Calcium 7.3 L (8.4-10.2) mg/dL Phosphorus 2.1 L (2.5-4.5) mg/dL Crossmatch See Detail 01/04/17 Range/Units 07:07 RBC 2.08 L (4.30-5.90) m/uL Hgb 6.8 L* (13.0-17.5) gm/dL Hct 19.7 L* (39.0-53.0) % RDW 16.3 H (11.5-15.5) % Plt Count 110 L (150-450) k/uL Lymphocytes # 0.7 L (1.0-4.8) k/uL PT (9.0-12.0) sec INR (<1.2) Chloride (98-107) mmol/L BUN (9-20) mg/dL Glucose (74-99) mg/dL Calcium (8.4-10.2) mg/dL Phosphorus (2.5-4.5) mg/dL Crossmatch Assessment and Plan Plan: Impression Acute symptomatic lower GI bleed suspect due to a diverticular bleed exacerbated by coagulopathy Coumadin induced Mitral valve repair 2000 Acute blood loss anemia due to a lower GI bleed A recent laparoscopic hernia repair with mesh November 2016 Hyperlipidemia History of hemorrhoids History of diverticulosis with colon polyps last colonoscopy 4 years ago History of atrial fibrillations successfully ablated status post January 03 EGD and total colonoscopy showed small hiatal hernia with no evidence of acute esophagitis mucus tear or varices. Normal stomach and duodenum without ulcer or active bleeding, diffuse diverticulosis of the colon was no evidence of active bleed at this time Plan no evidence of an acute surgical abdomen from surgical perspective patient is felt to be appropriate to be discharged defer to the timing of the discharge to the attending Per the attending plan is to transfuse 1 unit of packed red blood cells today for hemoglobin of 6.8 Monitor hemoglobin attempt keep the hemoglobin greater than 7.5 The above impression and plan of care have been discussed and directed by signing physician. Marylin Velez nurse practitioner acting as scribe for signing physician.
[2017-01-04 17:33] VITALS: RESP 16
[2017-01-04] MEDS: MONTELUKAST 10 MG TAB PO SCH (21:43)
[2017-01-04] MEDS: ATENOLOL 12.5 MG TAB PO SCH (21:43)
[2017-01-04] MEDS: ATORVASTATIN 20 MG TAB PO SCH (21:43)
[2017-01-05 06:51] LABS: Anisocytosis Slight; CH 30.9; CHCM 33.9; HCT 25.1 % (39.0-53.0); HDW 3.09; MCH 31.2 pg (25.0-35.0); MCV 91.7 fL (80.0-100.0); Mean Platelet Volume 7.1; RBC 2.74 m/uL (4.30-5.90); RDW 16.7 % (11.5-15.5); WBC 7.6 k/uL (3.8-10.6)
[2017-01-05 06:54] LABS: INR 1.1 (<1.2); Prothrombin Time 11.2 sec (9.0-12.0)
[2017-01-05 07:08] LABS: Anion Gap 5 mmol/L; Blood Urea Nitrogen 8 mg/dL (9-20); Carbon Dioxide 28 mmol/L (22-30); Chloride 106 mmol/L (98-107); Glucose 101 mg/dL (74-99); Magnesium 1.8 mg/dL (1.6-2.3); Non-African American GFR(MDRD) >60 (>60 ml/min/1.73 sqM); Phosphorous 3.2 mg/dL (2.5-4.5); Potassium 3.9 mmol/L (3.5-5.1); Sodium 139 mmol/L (137-145)
[2017-01-05 07:10] LABS: HGB 8.5 gm/dL (13.0-17.5)
[2017-01-05] MEDS: PANTOPRAZOLE 40 MG/10 ML VIAL IVP SCH (07:27)
[2017-01-05] MEDS: AMIODARONE 100 MG TAB PO SCH (07:28)
[2017-01-05 08:16] VITALS: BP 134/81; PULSE 52; TEMP 97.8
--- NOTE | 2017-01-05 13:44 | P.DS ---
Providers Date of admission: 01/01/17 12:39 Expected date of discharge: 01/05/17 Attending physician: Keenan Sommer Consults: 01/01/17 12:39 Consult Physician Stat Consulting Provider: Lisa Hoff Consult Reason/Comments: ICU management Do you want consulting provider notified?: Already Contacted Consult Physician Stat Consulting Provider: Leticia Mitchell Consult Reason/Comments: GI bleed Do you want consulting provider notified?: Already Contacted Primary care physician: Paramjit Chan [facility] Course: This is a 66-year-old male one of Dr. Chan with a previous medical history significant for coronary artery disease status post myocardial infarction, atrial flutter/fibrillation status post cardiac ablation with chronic anticoagulation on Coumadin, history of mitral valve disease status post mitral valve repair back in 1999 at the [facility], hyperlipidemia, ALLERGIC rhinitis, diverticulosis, patient was in his usual state of health about a 1:00 in the morning today when he woke up complaining of increased abdominal cramps associate with nausea he ended up going to the bathroom and he had significant bright red blood per rectum he thought that he is having diarrhea at that time. He continued to have diarrhea up to 8:00 in the morning he went and had a shower and he felt quite dizzy lightheaded he drove himself to the hospital while he was walking in the parking lot he almost passed out he was seen in the ER he was found to have a low hemoglobin his previous hemoglobin was around 14 and his hemoglobin is found up to be 11 he had dropped to use 3-1/2 g from the last one, patient did have a recent laparoscopic abdominal hernia repair on 11/26/2016 that was done by Dr. Bhatia, patient ended up the admitted to the hospital for lower GI bleed he was admitted to intensive care unit. He was started on IV fluid resuscitation the form of normal saline at 125 mL an hour, CBC every 4 hours for the next 24 hours, we will transfuse for hemoglobin less than 7. 8/30: Patient is now status post transfusion 2 units packed RBCs and fresh frozen plasma. Hemoglobin this morning was 6.7. He continues to have bright red rectal bleeding. GI is on consult with plan for endoscopy on Saturday. INR today is at 3 status post 1 dose of vitamin K. He is followed by Dr. Hoff for intensive care management, general surgeon Dr. Bennett Yusuf, and Dr. House from GI. 01/03: Patient is undergone EGD and colonoscopy with Dr. House with findings of small hiatal hernia with no evidence of acute esophagitis, mucosal tears or varices. Normal stomach and duodenum without ulcers or active bleeding. Diffuse diverticulosis of the colon with no evidence of active bleeding at the time of exam. INR is 1.8. Hemoglobin currently 7.3. Patient is status post transfusion of 4 units of packed RBCs and also fresh frozen plasma. Patient's blood pressure remains on the low side but does not require vasopressors. Patient will be transferred to med-surg. 01/04: states that he had a normal bowel movement this morning with no blood in it. He denies feeling tired or weak. He is very anxious to be discharged home. Hemoglobin today is at 6.8 and he will be transfused another unit of packed RBCs. Patient will stay overnight for monitoring and possible discharge by tomorrow. 01/05: Hemoglobin this morning is at 8.5. Patient states he did have a bowel movement at 8:30 this morning which was normal and there was no signs of blood or tarriness. Patient has been instructed to resume Coumadin once home and hold aspirin until Saturday. Patient will be discharged home today in stable condition. Discharge diagnoses: 1. Acute lower GI bleed most likely secondary to diverticular bleed exacerbated by coagulopathy from Coumadin. 2. Acute blood loss anemia due to lower GI bleed. Status post transfusion. 3. Mitral valve disorder status post mitral valve repair back in 2000. Stable at this point in time. 4. CAD post [place]. Stable at this point in time. 5. History of atrial fibrillation/flutter status post ablation. 6. Coagulopathy due to Coumadin use. 7. Recent laparoscopic hernia repair with mesh in 11/26/2016. 8. ALLERGIC rhinitis. 9. Hyperlipidemia. 10. History of hemorrhoids stable at this point in time. 11. History of diverticulosis and colon polyps last colonoscopy about 4 years ago. Discharge plan: Return home Impression and plan of care have been directed as dictated by the signing physician. Alisa Finnegan nurse practitioner acting as scribe for signing physician. Cc: Dr. Paramjit Chan Patient Condition at Discharge: Good Plan - Discharge Summary New Discharge Prescriptions: Continue Montelukast [Singulair] 10 mg PO HS Warfarin Sodium [Coumadin] 10 mg PO TUTHSA Webster-3 Fatty Acids/Fish Oil [Fish Oil 1,000 mg Softgel] 2 cap PO DAILY Multivitamin [Men's Multi-Vitamin] 1 tab PO DAILY Amiodarone [Cordarone] 100 mg PO DAILY #30 tab Warfarin Sodium [Coumadin] 8 mg PO SUMOWEFR Tamsulosin [Flomax] 0.8 mg PO DAILY Atorvastatin [Lipitor] 20 mg PO HS Atenolol [Tenormin] 12.5 mg PO HS Docusate [Colace] 100 mg PO BID #30 capsule Aspirin 81 mg PO DAILY #0 Discontinued Penicillin V Potassium [Pen Vee K] 500 mg PO QID Discharge Medication List Montelukast [Singulair] 10 mg PO HS 08/25/15 [History] Warfarin Sodium [Coumadin] 10 mg PO TUTHSA 08/25/15 [History] Multivitamin [Men's Multi-Vitamin] 1 tab PO DAILY 09/27/15 [History] Webster-3 Fatty Acids/Fish Oil [Fish Oil 1,000 mg Softgel] 2 cap PO DAILY [History] Amiodarone [Cordarone] 100 mg PO DAILY #30 tab 10/04/15 [Rx] Warfarin Sodium [Coumadin] 8 mg PO SUMOWEFR 10/04/15 [History] Atenolol [Tenormin] 12.5 mg PO HS 11/19/16 [History] Atorvastatin [Lipitor] 20 mg PO HS 11/19/16 [History] Tamsulosin [Flomax] 0.8 mg PO DAILY 11/19/16 [History] Docusate [Colace] 100 mg PO BID #30 capsule 11/26/16 [Rx] Aspirin 81 mg PO DAILY #0 01/05/17 [Rx] Follow up Appointment(s)/Referral(s): Erica Peng MD [STAFF PHYSICIAN] - 2 Weeks (please call to make appt. office closed at time of discharge) Paramjit Chan DO [Primary Care Provider] - 1 Week (please call to make appt. office closed at time of discharge) Rasheed Aviles MD [STAFF PHYSICIAN] - 1 Week (please call to make appt. office closed at time of discharge) Patient Instructions/Handouts: Anemia (DC) Activity/Diet/Wound Care/Special Instructions: Resume aspirin 81 mg on Saturday. Discharge Disposition: HOME SELF-CARE
== END 2017-01-05 13:33 | disposition home or self-care (01) | DRG 378 ==
LOC: EC 08:00 → 6ICU 12:39 → 5MS5E 01-03 12:15
PROVIDERS: ADMIT Internal Medicine; ATTEND Internal Medicine
PROC: 30233K1 Transfusion of Nonautologous Frozen Plasma into Peripheral Vein, Percutaneous Approach (ICD-10-PCS; 2017-01-02)
PROC: 30233N1 Transfusion of Nonautologous Red Blood Cells into Peripheral Vein, Percutaneous Approach (ICD-10-PCS; 2017-01-02)
PROC: 0DJD8ZZ Inspection of Lower Intestinal Tract, Via Natural or Artificial Opening Endoscopic (ICD-10-PCS; 2017-01-03)
PROC: 0DJ08ZZ Inspection of Upper Intestinal Tract, Via Natural or Artificial Opening Endoscopic (ICD-10-PCS; principal; 2017-01-03 07:30)
DX: K57.31 Diverticulosis of large intestine without perforation or abscess with bleeding (principal); D62 Acute posthemorrhagic anemia; I48.92 Unspecified atrial flutter; I95.9 Hypotension, unspecified; I48.91 Unspecified atrial fibrillation; E78.5 Hyperlipidemia, unspecified; H54.42 Blindness, left eye, normal vision right eye; I25.10 Atherosclerotic heart disease of native coronary artery without angina pectoris; I25.2 Old myocardial infarction; J30.9 Allergic rhinitis, unspecified; K44.9 Diaphragmatic hernia without obstruction or gangrene; K80.20 Calculus of gallbladder without cholecystitis without obstruction; N40.0 Benign prostatic hyperplasia without lower urinary tract symptoms; T45.515A Adverse effect of anticoagulants, initial encounter; K64.9 Unspecified hemorrhoids; M79.1 Myalgia; Z79.01 Long term (current) use of anticoagulants; Z79.82 Long term (current) use of aspirin; Z79.899 Other long term (current) drug therapy; Z82.49 Family history of ischemic heart disease and other diseases of the circulatory system
CPT/HCPCS: 36415; 43235; 71010; 74177; 80048; 80053; 82272; 82550; 82553; 83735; 84100; 84484; 85025; 85027; 85610; 85730; 86850; 86900; 86901; 86920; 94760; 96360; 99291

== ENCOUNTER → 2018-07-15 | Outpatient (CLI) | payer MEDICARE, BC ==
--- NOTE | 2018-07-15 11:50 | XR ---
EXAMINATION TYPE: XR chest 2V DATE OF EXAM: 07/15/2018 COMPARISON: January 02, 2017 HISTORY: Shortness of breath TECHNIQUE: Frontal and lateral views of the chest are obtained. FINDINGS: Scattered senescent parenchymal changes noted. Hyperinflation compatible with COPD. No evidence for infiltrate. No evidence for atelectasis. Heart size is stable. Mediastinal structures are stable and grossly unremarkable. No evidence for hilar prominence. Degenerative changes dorsal spine. IMPRESSION: 1. No evidence for acute pulmonary disease.
== END | disposition home or self-care (01) ==
LOC: RADXRMAIN 11:05
PROVIDERS: ATTEND Family Medicine
DX: R05 Cough (principal); I48.91 Unspecified atrial fibrillation
CPT/HCPCS: 71046